=== PATIENT | male | born 1955 | race African-American/Black ===

== ENCOUNTER 2018-12-28 15:43 | Day surgery (SDC) | payer MEDICARE, MEDICAID ==
[~2018-12-28] VITALS: Ht 182.9 cm; Wt 85.8 kg
[2018-12-28] MEDS ORDERED: fentaNYL INJECTION 100 MCG/2 ML AMP ONE ×2 (16:00→16:25)
[2018-12-28] MEDS ORDERED: ASPIRIN 81 MG CHEW (CHILDREN'S ASA) PO ONE (16:00)
[2018-12-28 16:10] LABS: HEMATOCRIT 46 % (40-54); MEAN CORPUSCULAR HEMOGLOBIN 29 PG (25-34); MEAN CORPUSCULAR HGB CONC 33 G/DL (32-36); MEAN CORPUSCULAR VOLUME 90 FL (80-99); MEAN PLATELET VOLUME 10.4 FL (7.4-10.4); PLATELET COUNT 228 10^3/uL (130-400); WHITE BLOOD COUNT 9.2 10^3/uL (4.3-11.0)
[2018-12-28 16:11] LABS: BASOPHILS # (AUTO) 0.1 10^3/uL (0.0-0.1); BASOPHILS % (AUTO) 1 % (0-10); EOSINOPHILS # (AUTO) 0.1 10^3/uL (0.0-0.3); EOSINOPHILS % (AUTO) 1 % (0-10); LYMPHOCYTES # (AUTO) 1.6 X 10^3 (1.0-4.0); LYMPHOCYTES % (AUTO) 18 % (12-44); MONOCYTES # (AUTO) 0.5 X 10^3 (0.0-1.0); MONOCYTES % (AUTO) 6 % (0-12); NEUTROPHILS # (AUTO) 6.9 X 10^3 (1.8-7.8); NEUTROPHILS % (AUTO) 75 % (42-75); RED CELL DISTRIBUTION WIDTH 13.5 % (10.0-14.5)
--- NOTE | 2018-12-28 16:14 | Diagnostic Imaging Report ---
INDICATION: Chest pain. COMPARISON: None. DISCUSSION: Single portable upright view of the chest was obtained. Normal heart size. No focal consolidation, pleural fluid, or pneumothorax. No osseous abnormality. IMPRESSION: 1. Negative portable chest. Dictated by: Dictated on workstation # [id number]
[2018-12-28] MEDS ORDERED: fentaNYL INJECTION 100 MCG/2 ML AMP IVP ONE (16:15)
[2018-12-28] MEDS ORDERED: NITROGLYCERIN 2% OINT 1 GM UNIT DOSE PACKET TOP ONE (16:15)
[2018-12-28] MEDS ORDERED: MIDAZOLAM 5 MG/5 ML (VERSED) VIAL ONE (16:24)
[2018-12-28] MEDS ORDERED: HEParin 1000 UNIT/ML (10ML VIAL) FOR BOLUS ONE (16:25)
[2018-12-28] MEDS ORDERED: EPTIFIBATIDE BOLUS 0 ML IV ONE (16:25)
[2018-12-28 16:27] LABS: BUN/CREATININE RATIO 6; CARBON DIOXIDE 29 MMOL/L (21-32); CHLORIDE 105 MMOL/L (98-107); CREATININE SERUM 1.41 MG/DL (0.60-1.30); GFR ESTIMATED > 60; POTASSIUM 4.1 MMOL/L (3.6-5.0); SODIUM 146 MMOL/L (135-145)
--- NOTE | 2018-12-28 16:27 | ED Chest Pain ---
General Stated Complaint: CHEST PAIN Source: patient, family Exam Limitations: no limitations History of Present Illness Date Seen by Provider: Dec 28, 2018 Time Seen by Provider: 15:50 Initial Comments This 63-year-old gentleman presents to the emergency room with acute onset of chest pain after push mowing a lawn at around 14:45. Pain is in the lower chest and epigastric region. He is not having any other symptoms at this time. He has markedly hypertensive. He has a history of hypertension and has quit his blood pressure medication because it made him feel dizzy. He denies any history of coronary artery disease. He is not on any medications at present. He has no local primary care provider. He rated his pain a 10 upon arrival to the ER and a 5/10 at the time of my exam. Allergies and Home Medications Allergies Coded Allergies: No Known Drug Allergies (Unverified , 12/28/18) Home Medications Aspirin 81 Mg Tablet.dr, 81 MG PO DAILY Prescribed by: RAFAT MALLORY on 12/29/182048 Atorvastatin Calcium 80 Mg Tablet, 80 MG PO HS Prescribed by: RAFAT MALLORY on 12/29/182048 Clopidogrel Bisulfate 75 Mg Tablet, 75 MG PO DAILY Prescribed by: RAFAT MALLORY on 12/29/182048 Metoprolol Tartrate 25 Mg Tablet, 25 MG PO BID Prescribed by: RAFAT MALLORY on 12/29/182048 Pantoprazole Sodium 40 Mg Tablet.dr, 40 MG PO DAILY Prescribed by: RAFAT MALLORY on 12/29/182048 Patient Home Medication List Home Medication List Reviewed: Yes Review of Systems Review of Systems Constitutional: no symptoms reported EENTM: No Symptoms Reported Respiratory: No Symptoms Reported Cardiovascular: See HPI Gastrointestinal: No Symptoms Reported Genitourinary: No Symptoms Reported Musculoskeletal: no symptoms reported Skin: no symptoms reported Psychiatric/Neurological: No Symptoms Reported Endocrine: No Symptoms Reported Hematologic/Lymphatic: No Symptoms Reported Past Rfkcmus-Zlblwb-Ebyyao Hx Past Med/Social Hx: Reviewed and Corrections made Patient Social History Recreational Drug Use: No Smoking Status: Former Smoker Past Medical History Surgeries: No Respiratory: No Cardiac: Yes Hypertension Neurological: Yes (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 oz. 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 Skin: Normal Color, Warm/Dry Progress/Results/Core Measures Results/Orders Lab Results Laboratory Tests Test 12/28/18 15:57 Range/Units White Blood Count 9.2 4.3-11.0 10^3/uL Red Blood Count 5.11 4.35-5.85 10^6/uL Hemoglobin 15.0 13.3-17.7 G/DL Hematocrit 46 40-54 % Mean Corpuscular Volume 90 80-99 FL Mean Corpuscular Hemoglobin 29 25-34 PG Mean Corpuscular Hemoglobin Concent 33 32-36 G/DL Red Cell Distribution Width 13.5 10.0-14.5 % Platelet Count 228 130-400 10^3/uL Mean Platelet Volume 10.4 7.4-10.4 FL Neutrophils (%) (Auto) 75 42-75 % Lymphocytes (%) (Auto) 18 12-44 % Monocytes (%) (Auto) 6 0-12 % Eosinophils (%) (Auto) 1 0-10 % Basophils (%) (Auto) 1 0-10 % Neutrophils # (Auto) 6.9 1.8-7.8 X 10^3 Lymphocytes # (Auto) 1.6 1.0-4.0 X 10^3 Monocytes # (Auto) 0.5 0.0-1.0 X 10^3 Eosinophils # (Auto) 0.1 0.0-0.3 10^3/uL Basophils # (Auto) 0.1 0.0-0.1 10^3/uL Prothrombin Time 13.1 12.2-14.7 SEC INR Comment 1.0 0.8-1.4 Activated Partial Thromboplast Time 31 24-35 SEC Sodium Level 146 H 135-145 MMOL/L Potassium Level 4.1 3.6-5.0 MMOL/L Chloride Level 105 98-107 MMOL/L Carbon Dioxide Level 29 21-32 MMOL/L Anion Gap 12 5-14 MMOL/L Blood Urea Nitrogen 8 7-18 MG/DL Creatinine 1.41 H 0.60-1.30 MG/DL Estimat Glomerular Filtration Rate > 60 BUN/Creatinine Ratio 6 Glucose Level 130 H 70-105 MG/DL Calcium Level 10.3 H 8.5-10.1 MG/DL Corrected Calcium 8.5-10.1 MG/DL Magnesium Level 2.2 1.6-2.4 MG/DL Total Bilirubin 0.4 0.1-1.0 MG/DL Aspartate Amino Transf (AST/SGOT) 21 5-34 U/L Alanine Aminotransferase (ALT/SGPT) 12 0-55 U/L Alkaline Phosphatase 107 40-136 U/L Myoglobin 45.7 10.0-92.0 NG/ML Troponin I < 0.30 <0.30 NG/ML Total Protein 8.4 H 6.4-8.2 GM/DL Albumin 4.7 H 3.2-4.5 GM/DL My Orders Orders - KELIN COLVIN MD Cbc With Automated Diff (12/28/18 15:50) Magnesium (12/28/18 15:50) Chest 1 View Ap/Pa Only (12/28/18 15:50) Ekg Tracing (12/28/18 15:50) Comprehensive Metabolic Panel (12/28/18 15:50) Myoglobin Serum (12/28/18 15:50) Protime With Inr (12/28/18 15:50) Partial Thromboplastin Time (12/28/18 15:50) O2 (12/28/18 15:50) Monitor-Rhythm Ecg Trace Only (12/28/18 15:50) Ed Iv/Invasive Line Start (12/28/18 15:50) Troponin I (12/28/18 15:50) Aspirin Chewable Tablet (Baby Aspirin Ch (12/28/18 16:00) Fentanyl Injection (Sublimaze Injection (12/28/18 16:00) Nitroglycerin Ointment (Nitrobid Ointme (12/28/18 16:15) Heparin Injection (Heparin Injection) (12/28/18 16:15) Fentanyl Injection (Sublimaze Injection (12/28/18 16:15) Midazolam Injection (Versed Injection) (12/28/18 16:24) Fentanyl Injection (Sublimaze Injection (12/28/18 16:25) Heparin (Bolus Per Protocol) (Heparin (B (12/28/18 16:25) Eptifibatide Bolus (Integrilin Bolus) (12/28/18 16:25) Medications Given in ED Vital Signs/I&O 12/28/18 12/28/18 12/28/18 12/28/18 15:43 15:43 16:00 16:17 Temp 98.2 98.2 Pulse 60 67 Resp 20 20 B/P (MAP) 175/103 (127) 185/103 (130) Pulse Ox 96 96 O2 Delivery Room Air Room Air Nasal Cannula Nasal Cannula O2 Flow Rate 2.00 2.00 FiO2 95 Progress Progress Note : Progress Note EKG was promptly obtained after patient arrival. That demonstrated developing ST elevation. Dr. Mallory reviewed EKG at 15:53 and agreed the EKG represented ischemia. He recommended immediate transfer and angiography. Patient was treated with aspirin, heparin 5000 units IV, fentanyl 50 g IV, and Nitropaste. Pain was improving. He was transferred emergently to [place] for cardiac interventions by [facility]. Initial ECG Impression Date: Dec 28, 2018 Initial ECG Impression Time: 15:50 Initial ECG Rate: 59 Initial ECG Rhythm: Normal Sinus Comment Normal sinus rhythm with ST elevation in V1 through V3. No abnormal intervals or axis deviation. Diagnostic Imaging Diagonstic Imaging: Xray Plain Films/CT/US/NM/MRI: chest Comments Chest x-ray viewed by me and report reviewed. See report below: NAME: DIMA MTZ MED REC#: [id number] PT STATUS: REG ER : 1955 PHYSICIAN: KELIN COLVIN MD ADMIT DATE: 12/28/18/ER FS Draft Date of Exam:12/28/18 CHEST 1 VIEW AP/PA ONLY INDICATION: Chest pain. COMPARISON: None. DISCUSSION: Single portable upright view of the chest was obtained. Normal heart size. No focal consolidation, pleural fluid, or pneumothorax. No osseous abnormality. IMPRESSION: 1. Negative portable chest. Dictated on workstation # [id number] Dict: 12/28/18 1608 Trans: 12/28/18 1613 [facility] [id number] Interpreted by: GERARDO RODRIGUEZ MD Departure Communication (Admissions) Time/Spoke to Admitting Phy: 15:53 Dr. Mallory Impression Primary Impression: STEMI (ST elevation myocardial infarction) Qualified Codes: I21.3 - ST elevation (STEMI) myocardial infarction of unspecified site Additional Impression: Accelerated hypertension Disposition: 02 XFER SHT-TRM HOSP Condition: Stable Admissions Decision to Admit Reason: Admit from ER (Trauma) Decision to Admit/Date: Dec 28, 2018 Time/Decision to Admit Time: 15:53 Transfer Time Spoke to Accepting Phy: 15:[address] Mallory requested transfer emergently to [facility] for cardiac catheterization. Transfer Time: 16:17 Transfer Facility: [facility] Method of Transfer: EMS ([facility]) Departure-Patient Inst. Scripts Pantoprazole Sodium (Pantoprazole Sodium) 40 Mg Tablet. 40 MG PO DAILY, #30 TAB 2 Refills Prov: RAFAT MALLORY MD 12/29/18 Aspirin (Aspirin EC) 81 Mg Tablet. 81 MG PO DAILY, #100 TAB 2 Refills Prov: RAFAT MALLORY MD 12/29/18 Metoprolol Tartrate (Metoprolol Tartrate) 25 Mg Tablet 25 MG PO BID, #60 TAB 2 Refills Prov: RAFAT MALLORY MD 12/29/18 Atorvastatin Calcium (Atorvastatin Calcium) 80 Mg Tablet 80 MG PO HS, #30 TAB 2 Refills Prov: RAFAT MALLORY MD 12/29/18 Clopidogrel Bisulfate (Clopidogrel) 75 Mg Tablet 75 MG PO DAILY, #30 TAB 2 Refills Prov: RAFAT MALLORY MD 12/29/18 KELIN COLVIN MD Dec 28, 2018 16:27
[2018-12-28 16:28] LABS: ALANINE AMINOTRANSFERASE 12 U/L (0-55); ALBUMIN 4.7 GM/DL (3.2-4.5); ALKALINE PHOSPHATASE 107 U/L (40-136); BILIRUBIN,TOTAL 0.4 MG/DL (0.1-1.0); CALCIUM 10.3 MG/DL (8.5-10.1); GLUCOSE 130 MG/DL (70-105); MAGNESIUM 2.2 MG/DL (1.6-2.4); TOTAL PROTEIN 8.4 GM/DL (6.4-8.2)
--- NOTE | 2018-12-28 16:41 | Cardiology History & Physical ---
HPI-Cardiology Cardiology Consultation Date of Consultation 12/28/18 Date of Admission Time Seen by Provider: 16:40 Indication: Chest pain HPI 63 years old gentleman with no known past history, started to have chest pain while mowing his lawn, described as 10 over 10 in intensity, went to [place] emergency room and noted to have continued ST elevation in the anterior leads, p ain is better with nitroglycerin, started on aspirin, given heparin. I was contacted and accepted the transfer to our facility for emergency cardiac catheterization. 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, treated at [facility]) Reproductive System Hx Reproductive Disorders: No Gastrointestinal No Musculoskeletal No Endocrine No HEENT No Cancer No Psychosocial No Social History Patient Social History Marrital Status: Smoking: Former smoker Recent Foreign Travel: No Contact w/other who traveled: No Recent Infectious Disease Expo: No Family Hx Other noncontributory ROS-Cardiology Review of Systems General: No Chills, No Night Sweats, No Fatigue, No Malaise, No Appetite HEENT: No Head Aches, No Visual Changes, No Eye Pain, No Ear Pain, No Dysphasia, No Sinus Congestion, No Post Nasal Drip, No Sore Throat Pulmonary: Dyspnea; No Cough, No Pleuritic Chest Pain Cardiovascular: Chest Pain; No: Palpitations, Orthopnea, Paroxysmal Noc. Dyspnea, Edema, Lt Headedness Gastrointestinal: No: Nausea, Vomiting, Abdominal Pain, Diarrhea, Constipation, Melena, Hematochezia Genitourinary: No Dysuria, No Frequency, No Incontinence, No Hematuria, No Retention Musculoskeletal: No: neck pain, shoulder pain, arm pain, back pain, hand pain, leg pain, foot pain Neurological: No: Weakness, Numbness, Incoordination, Change in speech, Confusion, Seizures Home Medications & Allergies Allergies: Coded Allergies: No Known Drug Allergies (Unverified , 12/28/18) Home Medication List Reviewed: Yes Does not take any meds at home Exam-Cardiology Vital Signs Vital Signs Date Time Temp Pulse Resp B/P (MAP) Pulse Ox O2 Delivery O2 Flow Rate FiO2 12/28/18 16:17 98.2 67 20 185/103 (130) 96 Nasal Cannula 2.00 12/28/18 16:00 95 Exam General Appearance: Alert, Oriented X3, Cooperative, No Acute Distress HEENT: Atraumatic, PERRLA Respiratory: Clear to Auscultation, Normal Air Movement Cardiovascular: Regular Rate, Normal S1, Normal S2, Other (SM, S3) Abdominal: Normal Bowel Sounds, Soft, No Tenderness, No Hepatosplenomegaly, No Masses Extremities: No Clubbing, No Cyanosis, No Edema, Normal Pulses, No Tenderness/Swelling Skin: No Rashes, No Breakdown, No Significant Lesion Neuro: Normal Gait, Normal Speech, Strength at 5/5 X4 Ext, Normal Tone, Sensation Intact Psych/Mental Status: Mental Status NL, Mood NL Results Labs Labs Laboratory Tests 12/28/18 15:57: White Blood Count 9.2, Red Blood Count 5.11, Hemoglobin 15.0, Hematocrit 46, Mean Corpuscular Volume 90, Mean Corpuscular Hemoglobin 29, Mean Corpuscular Hemoglobin Concent 33, Red Cell Distribution Width 13.5, Platelet Count 228, Mean Platelet Volume 10.4, Neutrophils (%) (Auto) 75, Lymphocytes (%) (Auto) 18, Monocytes (%) (Auto) 6, Eosinophils (%) (Auto) 1, Basophils (%) (Auto) 1, Neutrophils # (Auto) 6.9, Lymphocytes # (Auto) 1.6, Monocytes # (Auto) 0.5, Eosinophils # (Auto) 0.1, Basophils # (Auto) 0.1, Prothrombin Time 13.1, INR Comment 1.0, Activated Partial Thromboplast Time 31, Sodium Level 146H, Potassium Level 4.1, Chloride Level 105, Carbon Dioxide Level 29, Anion Gap 12, Blood Urea Nitrogen 8, Creatinine 1.41H, Estimat Glomerular Filtration Rate > 60, BUN/Creatinine Ratio 6, Glucose Level 130H, Calcium Level 10.3H, Corrected Calcium , Magnesium Level 2.2, Total Bilirubin 0.4, Aspartate Amino Transf (AST/SGOT) 21, Alanine Aminotransferase (ALT/SGPT) 12, Alkaline Phosphatase 107, Myoglobin 45.7, Troponin I < 0.30, Total Protein 8.4H, Albumin 4.7H A/P-Cardiology Admission Diagnosis Unstable angina Coronary artery disease Hypertensive emergency Hyperlipidemia Admission Status: Observation Assessment/Plan Unstable angina, continue ST elevation in the anterior lead with Q-wave, could be secondary to hypertensive heart disease. Chronic enzymes were negative, currently chest pain-free, cardiac catheterization was carried out showing multivessel coronary artery disease Coronary artery disease, cardiac catheterization showed moderate severe stenosis in the mid and distal LAD, moderate stenosis in the left main and ostial LAD, first obtuse marginal and distal right coronary artery, we'll continue maximizing medical therapy at this point. Malignant hypertension, difficult to control, started on Lopressor, lisinopril, nitroglycerin drip and will adjust medication as needed. Hyperlipidemia, started on statin. 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
[2018-12-28 16:43] LABS: PROTHROMBIN TIME PATIENT 13.1 SEC (12.2-14.7)
[2018-12-28] MEDS ORDERED: HEParin (CATH LAB) 2,000 UNIT/1,000 ML BAG IV ONE (16:56)
[2018-12-28] MEDS ORDERED: NITRO DRIP 25000 MCG/D5W 250 ML BTL IV ONE (16:56)
[2018-12-28] MEDS ORDERED: LIDOCAINE 1% INJ 20 ML 20 ML VIAL INJ ONE (16:56)
[2018-12-28] MEDS ORDERED: NS 1000 ML IV BAG IV ONE (16:56)
[2018-12-28] MEDS ORDERED: meTOprolol 5 MG/5 ML (LOPRESSOR) VIAL ONE (16:59)
[2018-12-28] MEDS ORDERED: NITRO DRIP 25000 MCG/D5W 250 ML IV ONE (17:05)
--- NOTE | 2018-12-28 17:16 | Cardiac Procedure Note-CS/ASA ---
Pre-Procedure Note Pre-Op Procedure Note H&P Reviewed The H&P was reviewed, patient examined and no changes noted. Date H&P Reviewed: Dec 28, 2018 Time H&P Reviewed: 17:16 Conscious Sedation Pre-Proced Time 17:16 ASA Score 3 For ASA 3 and 4: Consider anesthesia and medical clearance. Also, for patients with a history of failed moderate sedation consider anesthesia. Airway Lungs Heart ASA score ASA 1: a normal healthy patient ASA 2: a patient with a mild systemic disease (mid diabetes, controlled hypertension, obesity x ASA 3: a patient with a severe systemic disease that limits activity (angina, COPD, prior Myocardial infarction) ASA 4: a patient with an incapacitating disease that is a constant threat to life (CHF, renal failure) ASA 5: a moribund patient not expected to survive 24 hrs. (ruptured aneurysm) ASA 6: a declared brain- patient whose organs are being harvested. For emergent operations, add the letter E after the classification Mallampati Classification Grade 3 Sedation Plan Analgesia, Amnesia, Plan communicated to team members, Discussed options with patient/fam, Discussed risks with patient/fam The patient is an appropriate candidate to undergo the planned procedure, sedation, and anesthesia. The patient immediately re-assessed prior to indication. RAFAT GARCIA MD Dec 28, 2018 17:16
--- NOTE | 2018-12-28 17:27 | Cardiac Cath Report ---
Cardiac Cath Report Physician (s)/Apparel Machinery Instructor (s) Physician RAFAT GARCIA MD Pre-Procedure Diagnosis Pre-Procedure Diagnosis: Unstable angina Post-Procedure Note Procedure Start Date: Dec 28, 2018 Name of Procedure: Left heart catheterization Left ventriculogram Aortic arch angiogram Findings/Procedure Note PROCEDURE NOTE: 63 years old gentleman with history of malignant hypertension, came in to [place] emergency room with acute chest pain, transferred to our hospital for evaluation with cardiac catheterization, having continued ST elevation in the anterior leads. After explaining the procedure to the patient, all pros and cons were explained, all questions were answered. The patient signed the consent and then he was placed on the cardiac catheterization laboratory. Groin was prepped SL fashion local anesthesia was used. Sheath placed in the right femoral artery. Nicci right and left catheter were used to access the coronary system. Pigtail was used to access the left ventricular cavity. Left ventriculogram was done Aortic arch angiogram was done At the end of the procedure the sheath was removed. Closure device was used FINDINGS: Hemodynamics LV 191/20, end-diastolic pressure of 20 Aorta 203/108 mean was 150 ANATOMY: Left Main has 40-50 percent stenosis distally Left Anterior Descending has 50 percent ostial stenosis, 80 percent mid to distal stenosis the artery is fairly small followed by severe stenosis at the apex very small artery Left Circumflex is moderate in size with mild to moderate disease, first obtuse marginal branch has 50 percent stenosis Right Coronory Artery is dominant artery with moderate disease diffusely, 50 percent stenosis at the distal portion LV Gram was done showing normal left ventricular size and systolic function estimated ejection fraction 60 percent, left ventricular hypertrophy Aorta evaluation done with aortic arch angiogram showing no dissection or aneurysm, hypertensive changes, origin of the left subclavian, left carotid and innominate artery showed atherosclerotic disease no obstructive disease CONCLUSION: 1. Multivessel coronary artery disease including 40-50 percent distal left main involving the ostium of the LAD, the mid to distal LAD has 80 percent stenosis followed by severe stenosis at the apex, the artery is less than 2 mm in diameter 2. Mild to moderate disease at the mid and distal right coronary artery and proximal first obtuse marginal branch 3. Hypertensive heart disease with normal contractility, left ventricular hypertrophy with normal ejection fraction 60 percent 4. Hypertensive changes in the aortic arch no dissection or aneurysm DISCUSSION AND RECOMMENDATION: I will maximize medical therapy at this time and monitor the patient closely. Start on aspirin, beta blockers, NAMRATA inhibitor and statin and monitor tolerance and response. Regarding the mid and distal LAD, the artery is fairly small, unless patient is severely symptomatic I will consider medical therapy. Regardi ng the left main was monitoring is recommended, he might require CABG in the future Anesthesia Type: Conscious Sedation Estimated blood loss (mL): 15 ml Contrast Amount: 66 ml Total Radiation Dose: 350 mGy Post-Procedure Diagnosis Post-operative diagnosis: Unstable angina Coronary artery disease Malignant hypertension Hyperlipidemia RAFAT GARCIA MD Dec 28, 2018 17:27
[2018-12-28] MEDS ORDERED: PATIENT MAY USE OWN MEDS, ALL PO SCH (17:30)
[2018-12-28] MEDS: PANTOPRAZOLE 40 MG (PROTONIX) TAB PO SCH (18:54)
[2018-12-28] MEDS: NITRO DRIP 25000 MCG/D5W 250 ML IV SCH (18:55)
[2018-12-28] MEDS: lisINopril 20 MG (PRINIVIL) TABLET PO SCH (18:55)
[2018-12-28] MEDS: NS IV 1000 ML 1,000 ML IV SCH (18:56)
[2018-12-28 19:00] VITALS: BP 152/96
[2018-12-28] MEDS ORDERED: oxyCODONE/APAP 5/325MG (PERCOCET 5) TABLET PO PRN (19:45)
[2018-12-28 20:00] VITALS: BP 149/99
[2018-12-28] MEDS: meTOprolol TARTRATE 25 MG (LOPRESSOR) TABLET PO SCH (20:36)
[2018-12-28 21:00] VITALS: BP 130/99
[2018-12-28] MEDS ORDERED: ATORVASTATIN 80 MG (LIPITOR) TABLET PO SCH (21:00)
[2018-12-28] MEDS ORDERED: TEMAZEPAM 15 MG (RESTORIL) CAP PO PRN (21:00)
[2018-12-28 22:00] VITALS: BP 101/87
[2018-12-28 23:00] VITALS: BP 146/94
[2018-12-29] VITALS (11 sets, daily range): BP systolic 124–192; BP diastolic 73–112
[2018-12-29 04:00] LABS: HEMOGLOBIN 13.3 G/DL (13.3-17.7); MEAN PLATELET VOLUME 10.7 FL (7.4-10.4); RED CELL DISTRIBUTION WIDTH 13.9 % (10.0-14.5)
[2018-12-29 04:20] LABS: ALANINE AMINOTRANSFERASE 11 U/L (0-55); ALBUMIN 3.7 GM/DL (3.2-4.5); ALKALINE PHOSPHATASE 75 U/L (40-136); BILIRUBIN,TOTAL 0.4 MG/DL (0.1-1.0); BUN/CREATININE RATIO 7; CALCIUM 9.6 MG/DL (8.5-10.1); CARBON DIOXIDE 26 MMOL/L (21-32); CHLORIDE 105 MMOL/L (98-107); CHOLESTEROL 172 MG/DL (< 200); CREATININE SERUM 1.15 MG/DL (0.60-1.30); GFR ESTIMATED > 60; GLUCOSE 147 MG/DL (70-105); HDL CHOLESTEROL 42 MG/DL (40-60); POTASSIUM 3.9 MMOL/L (3.6-5.0); SODIUM 142 MMOL/L (135-145); TOTAL PROTEIN 6.7 GM/DL (6.4-8.2); TRIGLYCERIDES 87 MG/DL (<150); VLDL CHOLESTEROL 17 MG/DL (5-40)
[2018-12-29] MEDS: meTOprolol TARTRATE 25 MG (LOPRESSOR) TABLET PO SCH (08:01)
[2018-12-29] MEDS: lisINopril 20 MG (PRINIVIL) TABLET PO SCH (08:01)
[2018-12-29] MEDS: PANTOPRAZOLE 40 MG (PROTONIX) TAB PO SCH (08:02)
--- NOTE | 2018-12-29 08:34 | Cardiology Progress Note ---
Subjective Date Seen by Provider: Dec 29, 2018 Time Seen by Provider: 08:32 Subjective/Events-last exam Patient is laying down in bed, feeling better, denied any chest pain today. Groin is healing well. Review of Systems General: No Chills, No Night Sweats, No Fatigue, No Malaise, No Appetite, No Other HEENT: No Head Aches, No Visual Changes, No Eye Pain, No Ear Pain, No Dysphasia, No Sinus Congestion, No Post Nasal Drip, No Sore Throat, No Other Pulmonary: No Dyspnea, No Cough, No Pleuritic Chest Pain, No Other Cardiovascular: No: Chest Pain, Palpitations, Orthopnea, Paroxysmal Noc. Dyspnea, Edema, Lt Headedness, Other Objective-Cardiology Exam Last Set of Vital Signs Vital Signs 12/28/18 12/29/18 12/29/18 12/29/18 16:00 04:42 04:43 06:09 Temp 98.2 Pulse 49 Resp 15 B/P (MAP) 131/77 (95) Pulse Ox 13 O2 Delivery Room Air O2 Flow Rate 2.00 FiO2 95 Capillary Refill : Less Than 3 Seconds I&O Intake and Output 12/29/18 00:00 Intake Total 1360 ml Output Total 200 ml Balance 1160 ml Intake Oral 360 ml IV Total 1000 ml Output Urine Total 200 ml Daily Weight Change No General: Alert, Oriented X3, Cooperative, No Acute Distress HEENT: Atraumatic, PERRLA Lungs: Clear to Auscultation, Normal Air Movement Heart: Regular Rate, Normal S1, Normal S2, Other (SM, S3) Abdomen: Normal Bowel Sounds, Soft, No Tenderness, No Hepatosplenomegaly, No Masses Extremities: No Clubbing, No Cyanosis, No Edema, Normal Pulses, No Tenderness/Swelling Skin: No Rashes, No Breakdown, No Significant Lesion Neuro: Normal Gait, Normal Speech, Strength at 5/5 X4 Ext, Normal Tone, Sensation Intact Psych/Mental Status: Mental Status NL, Mood NL Results Lab Laboratory Tests 12/28/18 15:57 12/29/18 03:48 A/P-Cardiology Admission Diagnosis Unstable angina Coronary artery disease Hypertensive emergency Hyperlipidemia Assessment/Plan Unstable angina, non-ST elevation myocardial infarction, minimal concave ST elevation with Q-wave in the inferior lead secondary to left ventricular hypertrophy. Patient had cardiac catheterization showing extensive small vessel disease. Treated medically Coronary artery disease, cardiac catheterization showed moderate severe stenosis in the mid and distal LAD, subtotal occlusion at the far distal LAD at the apex level hairline artery, moderate stenosis in the left main and ostial LAD, first obtuse marginal and distal right coronary artery, I will wean him off nitroglycerin drip at [facility] and his current medication Malignant hypertension, better controlled today, continue to maximize medical therapy Hyperlipidemia, started on statin. History of frontal lobe injury questionable secondary to hypertensive encep halopathy Early dementia Clinical Quality Measures AMI/AHF: ASA po Prior to arrival: No DVT/VTE Risk/Contraindication: Risk Factor Score Per Nursin RFS Level Per Nursing on Admit: 4+=Very High RAFAT GARCIA MD Dec 29, 2018 08:34
[2018-12-29] MEDS ORDERED: CLOPIDOGREL 300 MG (PLAVIX) TABLET PO ONE (08:45)
[2018-12-29] MEDS ORDERED: ASPIRIN E.C. 81 MG (ECOTRIN) TAB PO SCH (09:00)
[2018-12-29] MEDS: NS IV 1000 ML 1,000 ML IV SCH ×2 (09:18→14:21)
--- NOTE | 2018-12-29 09:18 | Consultation - Hospitalist ---
HPI History of Present Illness: HPI/Chief Complaint Pt is a 63yoAAM who presented to the ER with CC of chest pain. He underwent cardiac cath yesterday which revealed diffuse small vessel disease and was not amenable to stenting. I am consulted for medical management. He has hyperglycemia while here but denies a history of DM. He is also unable to tell me a detailed history and states his daughter knows his medical history. His only question/complaint today is that he would like to discharge home. Source: patient Date Seen 12/29/18 Attending Physician Nathalia Mallory MD PCP Referring Physician Dr Mallory Date of Admission Home Medications & Allergies Home Medications Reviewed patient Home Medication Reconciliation performed by pharmacy medication reconciliations mechanical design technician and/or nursing. Patients Allergies have been reviewed. Allergies Allergies Coded Allergies No Known Drug Allergies (Unverified12/28/18) Past Xwylhsd-Alfkxu-Auxdxp Hx Past Med/Social Hx: Reviewed Nursing Past Med/Soc Hx, Reviewed and Corrections made Patient Social History Marrital Status: Alcohol Use: Denies Use Recreational Drug Use: No Smoking Status: Unknown if Ever Smoked Type Used: Smokeless Tobacco 2nd Hand Smoke Exposure: No Recent Foreign Travel: No Contact w/other who traveled: No Recent Hopitalizations: No Recent Infectious Disease Expo: No Seasonal Allergies Seasonal Allergies: No Past Medical History Surgeries: Coronary Stent Cardiac: Hypertension Reproductive: No History of Blood Disorders: No Family History Reviewed Nursing Family Hx Cervical cancer Hypertension G8 BROTHER G8 BROTHER G8 BROTHER Stroke in brother Review of Systems Constitutional: no symptoms reported EENTM: no symptoms reported Respiratory: no symptoms reported Cardiovascular: chest pain Gastrointestinal: no symptoms reported Genitourinary: no symptoms reported Musculoskeletal: no symptoms reported Skin: no symptoms reported Psychiatric/Neurological: No Symptoms Reported Physical Exam Physical Exam Vital Signs Vital Signs - First Documented 12/28/18 12/28/18 15:43 16:00 Temp 98.2 Pulse 60 Resp 20 B/P (MAP) 175/103 (127) Pulse Ox 96 O2 Delivery Room Air O2 Flow Rate 2.00 FiO2 95 Capillary Refill : Less Than 3 Seconds Height, Weight, BMI Height: 6'0.00" Weight: 189lbs. 4.0oz. 85.615256tz; 25.8 BMI Method:Estimated General Appearance: No Apparent Distress, WD/WN HEENT: PERRL/EOMI, Moist Mucous Membranes; No Scleral Icterus (L), No Scleral Icterus (R) Neck: Normal Inspection; No JVD, No Thyromegaly Respiratory: Lungs Clear, No Accessory Muscle Use, No Respiratory Distress Cardiovascular: Regular Rate, Rhythm, No Edema, No Murmur Gastrointestinal: Normal Bowel Sounds, Non Tender, Soft Extremity: Normal Inspection, Non Tender, No Calf Tenderness, No Pedal Edema Neurologic/Psychiatric: Alert, Oriented x3, Normal Mood/Affect, district leader II-XII Norm as Tested Skin: Normal Color, Warm/Dry Results Results/Procedures Labs Laboratory Tests 12/28/18 15:57 12/29/18 03:48 Patient resulted labs reviewed. Imaging: Reviewed Imaging Report Assessment/Plan Assessment and Plan Assess & Plan/Chief Complaint Chest Pain Medical management of CAD Management per cardiology HTN now off nitro gtt and improving Continue with Lisinopril, Metoprolol Hyperglycemia Will get a1c No known history of DM Dementia Pleasantly confused Reorient as needed Diagnosis/Problems Diagnosis/Problems (1) STEMI (ST elevation myocardial infarction) Status: Acute Qualifiers: Involved coronary artery: unspecified coronary artery Qualified Codes: I21.3 - ST elevation (STEMI) myocardial infarction of unspecified site (2) Hyperglycemia Status: Acute (3) Dementia Status: Acute Qualifiers: Dementia type: other frontotemporal dementia Dementia behavioral distu rbance: without behavioral disturbance Qualified Codes: G31.09 - Other frontotemporal dementia; F02.80 - Dementia in other diseases classified elsewhere without behavioral disturbance (4) Unstable angina Status: Acute (5) Accelerated hypertension Status: Acute Clinical Quality Measures AMI/AHF: ASA po Prior to arrival: No DVT/VTE Risk/Contraindication: Risk Factor Score Per Nursin RFS Level Per Nursing on Admit: 4+=Very High ELENA PÉREZ MD Dec 29, 2018 09:18
[2018-12-29] MEDS: NITRO DRIP 25000 MCG/D5W 250 ML IV SCH (17:46)
[2018-12-29] MEDS ORDERED: HALOPERIDOL 5 MG/ML (HALDOL) AMP ONE (20:27)
[2018-12-29] MEDS ORDERED: HALOPERIDOL 5 MG/ML (HALDOL) AMP IM PRN (20:45)
[2018-12-29] MEDS ORDERED: ASPI-983 PO (20:49)
[2018-12-29] MEDS ORDERED: PANT40TA3 PO (20:49)
[2018-12-29] MEDS ORDERED: CLOP75TA28 PO (20:49)
[2018-12-29] MEDS ORDERED: ATOR80TA76 PO (20:49)
[2018-12-29] MEDS ORDERED: METO-333 PO (20:49)
--- NOTE | 2018-12-29 20:50 | Discharge Inst-Post CATH ---
Discharge Inst-CATH/EP Problems Reviewed?: Yes Post Cardiac Cath/EP D/C Inst Follow Up/Plan Appointment with Dr Carlos in 2-4 weeks <b>CARDIAC CATH/EP PROCEDURE DISCHARGE INSTRUCTIONS</b> ACTIVITY * Go Home directly and rest. * Limit activity of the leg (or wrist if it was used) for 7 days including aerobics, swimming, jogging, bicycling, etc. * Restrict stair-climbing for 7 days if possible, if not, climb up with your non-cath leg, then bring together on the same step. * Avoid lifting, pushing, pulling or excessive movement of the affected extremity for 7 days. * Customary sexual activity may be resumed after 2 days-use caution not to use a position that strains or causes pain to the affected extremity. * No driving for 24 hours. * NO SMOKING. * Avoid straining for bowel movements for 7 days. * Gentle walking on level ground is allowed. * Returning to work will depend on the type of procedure and the results. Your doctor will discuss this with you. CALL YOUR DOCTOR FOR ANY OF THE FOLLOWING: *If bleeding from the puncture site occurs- Apply gentle pressure to site with clean cloth and call your doctor or EMS. * If a knot or lump forms under the skin, increases in size, or causes pain. * If bruising appears to be worsening or moving further down your leg instead of disappearing. * Temperature above 101 F. CARE OF YOUR GROIN INCISION; * Bruising or purple discoloration of the skin near the puncture site is common. * You may shower only, no bathtub bathing for 5 days. Be careful to avoid slipping as your leg may feel stiff. * If a closure device was used on your femoral artery, please see the attached guide regarding care of the device and your leg. * Leave dressing on FOR 24 hours. CARE OF YOUR WRIST INCISION; * Bruising or purple discoloration of the skin near the puncture site is common. * You may shower. * DO NOT submerge wrist. * Leave dressing on FOR 24 hours. RAFAT GARCIA MD Dec 29, 2018 20:50
--- NOTE | 2018-12-29 20:54 | Clinic Account Progress/Dx ---
Clinic Account Progress/Dx DIAGNOSIS: Date Seen by Provider: Dec 29, 2018 Time Seen by Provider: 20:54 Unstable angina Coronary artery disease Hypertensive emergency Hyperlipidemia RAFAT GARCIA MD Dec 29, 2018 20:54
--- NOTE | 2018-12-29 21:00 | NUR ---
Pt has dementia, refused night time medications. Entering patient rooms, attempting to leave unit, setting off fire alarms, noncompliant with treatment regimens. Called Dr. Belle and Dr. Mallory about situation, Dr. Mallory agreed patient could be discharged tonight and put in discharge orders. Called daughter: Lorraine and she is on her way to pick patient. Nurse caddy/caddie supervisor called Dr. Mallory's office to schedule F/U appointment and left contact information for patient's family on voicemail. Nurse caddy/caddie supervisor calling new prescriptions into [facility] pharmacy at [place] tomorrow am when they open. DOMINICK Peters
[2018-12-30] MEDS ORDERED: CLOPIDOGREL 75 MG (PLAVIX) TABLET PO SCH (09:00)
== END 2018-12-29 21:53 ==
LOC: ER FS 15:46 → CATH 16:55 → ICU 17:45 → CATH 17:50 → ICU 17:50 → CATH 12-29 21:53
PROVIDERS: ATTEND Internal Medicine Cardiovascular Disease
DX: I20.0 Unstable angina (principal); I10 Essential (primary) hypertension; I21.3 ST elevation (STEMI) myocardial infarction of unspecified site; I25.10 Atherosclerotic heart disease of native coronary artery without angina pectoris; E78.5 Hyperlipidemia, unspecified; Z79.82 Long term (current) use of aspirin; Z79.899 Other long term (current) drug therapy; Z87.891 Personal history of nicotine dependence
CPT/HCPCS: 36221; 36415; 71045; 80053; 80061; 83036; 83735; 83874; 84484; 85025; 85027; 85610; 85730; 87081; 93005; 93041; 93306; 93458; 96374

== ENCOUNTER 2019-03-29 13:53 | Emergency (ER) | payer MEDICARE, MEDICAID ==
[~2019-03-29] VITALS: Ht 182.9 cm; Wt 93.2 kg
[~2019-03-29 13:53] MED LIST: ASPI-983 PO; ATOR80TA76 PO; CLOP75TA28 PO; METO-333 PO; PANT40TA3 PO
[2019-03-29] MEDS ORDERED: OXYMETAZOLINE (AFRIN) 0.05% NA 15 ML BTL ONE (14:00)
[2019-03-29] MEDS ORDERED: TRANEXAMIC ACID 100 MG/ML 10 ML INJECTION IV ONE ×2 (14:10→14:30)
[2019-03-29] MEDS ORDERED: OXYMETAZOLINE (AFRIN) 0.05% NA 15 ML BTL SCH (14:15)
--- NOTE | 2019-03-29 14:36 | ED EENT ---
History of Present Illness General Chief Complaint: Nasal Problems Stated Complaint: NOSE BLEED Source: patient, family Exam Limitations: no limitations History of Present Illness Date Seen by Provider: Mar 29, 2019 Time Seen by Provider: 14:10 Initial Comments 64-year-old male presents with nosebleed that started approximately 30 minutes prior to arrival. He reports that he blew his nose really hard numbness or bleeding. The bleeding is quite a bit worse for the right than the left Meraz. Patient is on Plavix. He does report he is having a recent head cold. No trauma, chest pain, dizziness, shortness of breath. Timing/Duration: abrupt Severity: moderate Allergies and Home Medications Allergies Coded Allergies: No Known Drug Allergies (Unverified , 12/28/18) Home Medications Aspirin 81 Mg Tablet., 81 MG PO DAILY Prescribed by: RAFAT GARCIA on 12/29/182048 Atorvastatin Calcium 80 Mg Tablet, 80 MG PO HS Prescribed by: RAFAT GARCIA on 12/29/182048 Clopidogrel Bisulfate 75 Mg Tablet, 75 MG PO DAILY Prescribed by: RAFAT GARCIA on 12/29/182048 Metoprolol Tartrate 25 Mg Tablet, 25 MG PO BID Prescribed by: RAFAT GARCIA on 12/29/182048 Pantoprazole Sodium 40 Mg Tablet., 40 MG PO DAILY Prescribed by: RAFAT GARCIA on 12/29/182048 Patient Home Medication List Home Medication List Reviewed: Yes Review of Systems Review of Systems Constitutional: No chills, No fever Nose: see HPI, epistaxis Mouth: no symptoms reported Throat: no symptoms reported Respiratory: no symptoms reported Cardiovascular: no symptoms reported Gastrointestinal: no symptoms reported Past Frgwwlo-Kjogyc-Tfunqq Hx Past Med/Social Hx: Reviewed Nursing Past Med/Soc Hx Patient Social History Type Used: Smokeless Tobacco 2nd Hand Smoke Exposure: No Recent Hopitalizations: No Seasonal Allergies Seasonal Allergies: No Past Medical History Surgeries: No Coronary Stent Respiratory: No Cardiac: Yes Hypertension Neurological: Yes (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 4.0oz. 85.705510yd; 25.8 BMI Method:Estimated General Appearance: WD/WN, no apparent distress Nose: active bleeding (moderate) Neck: full range of motion, supple Cardiovascular: normal peripheral pulses, regular rate, rhythm Respiratory: chest non-tender, lungs clear, normal breath sounds Neurologic/Psychiatric: alert, normal mood/affect, oriented x 3 Skin: normal color, warm/dry Procedures/Interventions Nasal : Nasal Location: Right Nasal Drops Instilled: Afrin Nasal Procedures: Rapid Rhino Progress Patient was initially given Afrin with minimal relief. Then had a round of 1.5 mL TXaa using an atomizer in each nare, then a 3 ml txa in right nare, mild relief. pt then had a txa soaked rapid rhino placed in right nare, with bleeding controlled Progress/Results/Core Measures Results/Orders My Orders Orders - RAMO POLLACK DO Oxymetazoline 0.05% Nasal Damon (Afrin 0. (03/29/19 14:00) Oxymetazoline 0.05% Nasal Damon (Afrin 0. (03/29/19 14:15) Tranexamic Acid Injection (Cyklokapron I (03/29/19 14:10) Tranexamic Acid Injection (Cyklokapron I (03/29/19 14:30) Medications Given in ED Current Medications Medications Dose Ordered Sig/Brandyn Route Start Time Stop Time Status Last Admin Dose Admin Tranexamic Acid 600 mg ONCE ONCE IV 03/29/19 14:30 03/29/19 14:31 DC 03/29/19 14:21 600 MG Vital Signs/I&O 03/29/19 13:57 Temp 35.7 Pulse 68 Resp 18 B/P (MAP) 168/104 (125) Pulse Ox 98 O2 Delivery Room Air Departure Impression Primary Impression: Epistaxis Disposition: 01 HOME, SELF-CARE Condition: Stable Departure-Patient Inst. Referrals: [facility] (PCP) Primary Care Physician SPEEDY REYNOLDS APRN (Family) Primary Care Physician Patient Instructions: Nosebleeds (DC), [facility] NASAL IRR[facility]. Add. Discharge Instructions: Follow-up with ENT or primary care provider in 2 days for removal of Rhino Rocket and recheck of symptoms All discharge instructions reviewed with patient and/or family. Voiced understanding. RAMO POLLACK DO Mar 29, 2019 14:36 POS
[2019-03-29 15:10] VITALS: BP 156/96
--- OUTSIDE RECORDS SUMMARY | 2019-04-23 23:23 | XMS REPORT | Continuity of Care Document ---
Author Organization Unknown Address Unknown Phone Unavailable Allergies Active Description Code Type Severity Reaction Onset Reported/Identified Relationship to Patient Clinical Status Yes No Known Drug Allergies [id number] Drug Allergy Unknown N/A 12/28/2018 Medications There is no data. Problems Date Dx Coded Attending Type Code Diagnosis Diagnosed By 12/29/2018 RAFAT GARCIA MD, Ot E78. 5 HYPERLIPIDEMIA, UNSPECIFIED 12/29/2018 RAFAT GARCIA MD Ot I10 ESSENTIAL (PRIMARY) HYPERTENSION 12/29/2018 RAFAT GARCIA MD Ot I20. 0 UNSTABLE ANGINA 12/29/2018 RAFAT GARCIA MD Ot I21. 3 ST ELEVATION (STEMI) MYOCARDIAL INFARCTI 12/29/2018 RAFAT GARCIA MD Ot I25. 10 ATHSCL HEART DISEASE OF [place] CORONARY 12/29/2018 RAFAT GARCIA MD Ot Z79. 82 FOREST ECONOMIST (CURRENT) USE OF ASPIRIN 12/29/2018 RAFAT GARCIA MD Ot Z79.899 OTHER ALF (CURRENT) DRUG THERAPY 12/29/2018 RAFAT GARCIA MD Ot Z87.891 PERSONAL HISTORY OF NICOTINE DEPENDENCE 01/02/2019 RAFAT GARCIA MD Ot E78. 5 HYPERLIPIDEMIA, UNSPECIFIED 01/02/2019 RAFAT GARCIA MD Ot I10 ESSENTIAL (PRIMARY) HYPERTENSION 01/02/2019 RAFAT GARCIA MD Ot I20. 0 UNSTABLE ANGINA 01/02/2019 RAFAT GARCIA MD Ot I21. 3 ST ELEVATION (STEMI) MYOCARDIAL INFARCTI 01/02/2019 RAFAT GARCIA MD Ot I25. 10 ATHSCL HEART DISEASE OF [place] CORONARY 01/02/2019 RAFAT GARCIA MD Ot Z79. 82 FOREST ECONOMIST (CURRENT) USE OF ASPIRIN 01/02/2019 RAFAT GARCIA MD Ot Z79.899 OTHER FOREST ECONOMIST (CURRENT) DRUG THERAPY 01/02/2019 RAFAT GARCIA MD Ot Z87.891 PERSONAL HISTORY OF NICOTINE DEPENDENCE 01/02/2019 RAFAT GARCIA MD Ot E78. 5 HYPERLIPIDEMIA, UNSPECIFIED 01/02/2019 RAFAT GARCIA MD Ot I10 ESSENTIAL (PRIMARY) HYPERTENSION 01/02/2019 RAFAT GARCIA MD Ot I20. 0 UNSTABLE ANGINA 01/02/2019 RAFAT GARCIA MD Ot I21. 3 ST ELEVATION (STEMI) MYOCARDIAL INFARCTI 01/02/2019 RAFAT GARCIA MD Ot I25. 10 ATHSCL HEART DISEASE OF [place] CORONARY 01/02/2019 RAFAT GARCIA MD Ot Z79. 82 ALF (CURRENT) USE OF ASPIRIN 01/02/2019 RAFAT GARCIA MD Ot Z79.899 OTHER FOREST ECONOMIST (CURRENT) DRUG THERAPY 01/02/2019 RAFAT GARCIA MD Ot Z87.891 PERSONAL HISTORY OF NICOTINE DEPENDENCE 01/04/2019 RAFAT GARCIA MD Ot E78. 5 HYPERLIPIDEMIA, UNSPECIFIED 01/04/2019 RAFAT GARCIA MD Ot I10 ESSENTIAL (PRIMARY) HYPERTENSION 01/04/2019 RAFAT GARCIA MD Ot I20. 0 UNSTABLE ANGINA 01/04/2019 RAFAT GARCIA MD Ot I21. 3 ST ELEVATION (STEMI) MYOCARDIAL INFARCTI 01/04/2019 RAFAT GARCIA MD Ot I25. 10 ATHSCL HEART DISEASE OF [place] CORONARY 01/04/2019 RAFAT GARCIA MD Ot Z79. 82 ALF (CURRENT) USE OF ASPIRIN 01/04/2019 RAFAT GARCIA MD Ot Z79.899 OTHER FOREST ECONOMIST (CURRENT) DRUG THERAPY 01/04/2019 RAFAT GARCIA MD Ot Z87.891 PERSONAL HISTORY OF NICOTINE DEPENDENCE 04/03/2019 POLLACK DO, RAMO L Ot I10 ESSENTIAL (PRIMARY) HYPERTENSION 04/03/2019 POLLACK DO, RAMO L Ot R04.0 EPISTAXIS 04/03/2019 POLLACK DO, RAMO L Ot Z79.0 2 FOREST ECONOMIST (CURRENT) USE OF ANTITHROMBOTI 04/03/2019 POLLACK DO, RAMO L Ot Z79.8 2 ALF (CURRENT) USE OF ASPIRIN 04/03/2019 POLLACK DO, RAMO L Ot Z80.4 9 FAMILY HISTORY OF MALIGNANT NEOPLASM OF 04/03/2019 POLLACK DO, RAMO L Ot Z82.4 9 FAMILY HX OF ISCHEM HEART DIS AND OTH DI 04/03/2019 POLLACK DO, RAMO L Ot Z95.5 PRESENCE OF CORONARY ANGIOPLASTY IMPLANT Procedures There is no data. Results Test Result Range Complete blood count (CBC) with automate d white blood cell (WBC) differential - 12/28/18 15:57 Blood leukocytes automated count (number/volume) 9.2 10*3/uL 4.3-11.0 Blood erythrocytes automated count (number/volume) 5.11 10*6/uL 4.35-5.85 Venous blood hemoglobin measurement (mass/volume) 15.0 g/dL 13.3-17.7 Blood hematocrit (volume fraction) 46 % 40-54 Automated erythrocyte mean corpuscular volume 90 [ foz_us] 80-99 Automated erythrocyte mean corpuscular h emoglobin (mass per erythrocyte) 29 pg 25-34 Automated erythrocyte mean corpuscular h emoglobin concentration measurement (mass/volume) 33 g/dL 32-36 Automated erythrocyte distribution width ratio 13. 5 % 10.0- 14.5 Automated blood platelet count (count/volume) 228 10*3/uL 130-400 Automated blood platelet mean volume measurement 10.4 [foz_us] 7.4-10.4 Automated blood neutrophils/100 leukocytes 75 % 42-75 Automated blood lymphocytes/100 leukocytes 18 % 12-44 Blood monocytes/100 leukocytes 6 % 0-12 Automated blood eosinophils/100 leukocytes 1 % 0-10 Automated blood basophils/100 leukocytes 1 % 0-10 Blood neutrophils automated count (number/volume) 6.9 10*3 1.8-7.8 Blood lymphocytes automated count (number/volume) 1.6 10*3 1.0-4.0 Blood monocytes automated count (number/volume) 0. 5 10*3 0.0-1.0 Automated eosinophil count 0.1 10*3/uL 0 .0-0.3 Automated blood basophil count (count/volume) 0.1 10*3/uL 0.0-0.1 Comprehensive metabolic panel - 12/28/18 15:57 Serum or plasma sodium measurement (moles/volume) 146 mmol/L 135-145 Serum or plasma potassium measurement (moles/volume) 4.1 mmol/L 3.6-5.0 Serum or plasma chloride measurement (moles/volume) 105 mmol/L 98-107 Carbon dioxide 29 mmol/L 21-32 Serum or plasma anion gap determination (moles/volume) 12 mmol/L 5-14 Serum or plasma urea nitrogen measurement (mass/volume ) 8 mg/dL 7-18 Serum or plasma creatinine measurement (mass/volume) 1.41 mg/dL 0.60-1.30 Serum or plasma urea nitrogen/creatinine mass ratio 6 NRG Serum or plasma creatinine measurement w ith calculation of estimated glomerular filtration rate > NRG Serum or plasma glucose measurement (mass/volume) 130 mg/dL 70-105 Serum or plasma calcium measurement (mass/volume) 10.3 mg/dL 8.5-10.1 Serum or plasma total bilirubin measurement (mass/volu me) 0.4 mg/dL 0.1-1.0 Serum or plasma alkaline phosphatase jade surement (enzymatic activity/volume) 107 U/L 40-136 Serum or plasma aspartate aminotransfera se measurement (enzymatic activity/volume) 21 U/L 5-34 Serum or plasma alanine aminotransferase measurement (enzymatic activity/volume) 12 U/L 0-55 Serum or plasma protein measurement (mass/volume) 8.4 g/dL 6.4-8.2 Serum or plasma albumin measurement (mass/volume) 4.7 g/dL 3.2-4.5 Magnesium - 12/28/18 15:57 Magnesium 2.2 mg/dL 1.6-2.4 Myoglobin, serum - 12/28/18 15:57 Myoglobin, serum 45.7 ng/mL 10.0-92.0 Serum or plasma troponin i.cardiac measu rement (mass/volume) - 12/28/18 15:57 Serum or plasma troponin i.cardiac measurement (mass/v olume) < ng/mL <0.30 PT panel in platelet poor plasma by coag ulation assay - 12/28/18 15:57 Prothrombin time (PT) in platelet poor plasma by coagu lation assay 13.1 s 12.2-14.7 INR in platelet poor plasma or blood by coagulation as say 1.0 0.8-1.4 Activated partial thromboplastin time (a PTT) in platelet poor plasma bycoagulation assay - 12/28/18 15:57 Activated partial thromboplastin time (a PTT) in platelet poor plasma bycoagulation assay 31 s 24-35 Methicillin resistant Staphylococcus aur eus (MRSA) screening culture - 12/28/18 18:10 Methicillin resistant Staphylococcus aureus (MRSA) scr eening culture NEG NRG Automated blood complete blood count (he mogram) panel - 12/29/18 03:48 Blood leukocytes automated count (number/volume) 10.0 10*3/uL 4.3-11.0 Blood erythrocytes automated count (number/volume) 4.51 10*6/uL 4.35-5.85 Venous blood hemoglobin measurement (mass/volume) 13.3 g/dL 13.3-17.7 Blood hematocrit (volume fraction) 40 % 40-54 Automated erythrocyte mean corpuscular volume 89 [ foz_us] 80-99 Automated erythrocyte mean corpuscular h emoglobin (mass per erythrocyte) 30 pg 25-34 Automated erythrocyte mean corpuscular h emoglobin concentration measurement (mass/volume) 33 g/dL 32-36 Automated erythrocyte distribution width ratio 13. 9 % 10.0- 14.5 Automated blood platelet count (count/volume) 197 10*3/uL 130-400 Automated blood platelet mean volume measurement 10.7 [foz_us] 7.4-10.4 Comprehensive metabolic panel - 12/29/18 03:48 Serum or plasma sodium measurement (moles/volume) 142 mmol/L 135-145 Serum or plasma potassium measurement (moles/volume) 3.9 mmol/L 3.6-5.0 Serum or plasma chloride measurement (moles/volume) 105 mmol/L 98-107 Carbon dioxide 26 mmol/L 21-32 Serum or plasma anion gap determination (moles/volume) 11 mmol/L 5-14 Serum or plasma urea nitrogen measurement (mass/volume ) 8 mg/dL 7-18 Serum or plasma creatinine measurement (mass/volume) 1.15 mg/dL 0.60-1.30 Serum or plasma urea nitrogen/creatinine mass ratio 7 NRG Serum or plasma creatinine measurement w ith calculation of estimated glomerular filtration rate > NRG Serum or plasma glucose measurement (mass/volume) 147 mg/dL 70-105 Serum or plasma calcium measurement (mass/volume) 9.6 mg/dL 8.5-10.1 Serum or plasma total bilirubin measurement (mass/volu me) 0.4 mg/dL 0.1-1.0 Serum or plasma alkaline phosphatase jade surement (enzymatic activity/volume) 75 U/L 40-136 Serum or plasma aspartate aminotransfera se measurement (enzymatic activity/volume) 28 U/L 5-34 Serum or plasma alanine aminotransferase measurement (enzymatic activity/volume) 11 U/L 0-55 Serum or plasma protein measurement (mass/volume) 6.7 g/dL 6.4-8.2 Serum or plasma albumin measurement (mass/volume) 3.7 g/dL 3.2-4.5 CALCIUM CORRECTED 9.8 mg/dL 8.5-10.1 Serum or plasma troponin i.cardiac measu rement (mass/volume) - 12/29/18 03:48 Serum or plasma troponin i.cardiac measurement (mass/v olume) 1.131 ng/mL <0.028 Lipid 1996 panel - 12/29/18 03:48 Serum or plasma triglyceride measurement (mass/volume) 87 mg/dL <150 Serum or plasma cholesterol measurement (mass/volume) 172 mg/dL < 200 Serum or plasma cholesterol in HDL measurement (mass/v olume) 42 mg/dL 40-60 Cholesterol in LDL [mass/volume] in serum or plasma by direct assay 124 mg/dL 1-129 Serum or plasma cholesterol in VLDL measurement (mass/ volume) 17 mg/dL 5-40 Hemoglobin A1c measurement - 12/29/18 03 :48 Blood hemoglobin A1C measurement (mass/volume) 6.0 % 4.0-5.6 MEAN BLOOD GLUCOSE 126 % <=126 Encounters ACCT No. Visit Date/Time Discharge Status Pt. Type Provider Facility Loc./Unit Complaint [id number] 03/31/2019 14:40:00 03/31/2019 23:59: 59 CLS Outpatient SPEEDY REYNOLDS [facility] [id number] 03/29/2019 13:54:00 15:10:00 DIS Outpatient RAMO POLLACK DO [facility] ER FS NOSE BLEED [id number] 12/28/2018 17:50:00 21:53:00 DIS Outpatient RAFAT GARCIA MD [facility] CATH CHEST PAIN
== END 2019-03-29 15:10 | disposition home or self-care (01) ==
LOC: EDUNIT# 13:53 → ER FS 13:54
DX: R04.0 Epistaxis (principal); I10 Essential (primary) hypertension; Z79.82 Long term (current) use of aspirin; Z79.02 Long term (current) use of antithrombotics/antiplatelets; Z95.5 Presence of coronary angioplasty implant and graft; Z82.49 Family history of ischemic heart disease and other diseases of the circulatory system; Z80.49 Family history of malignant neoplasm of other genital organs

== ENCOUNTER 2022-02-16 12:17 | Emergency (ER) | payer MEDICARE, MEDICAID ==
[~2022-02-16] VITALS: Ht 187.9 cm; Wt 83.9 kg
[~2022-02-16 12:17] MED LIST changes: +ASPI-1238 PO; -ASPI-983 PO; -PANT40TA3 PO; +PANT40TA52 PO
[2022-02-16] MEDS ORDERED: NS IV 1000 ML 1,000 ML ONE (12:35)
--- NOTE | 2022-02-16 12:42 | ED Fall/Injury ---
General Chief Complaint: Trauma-Non Activation Stated Complaint: FALL/ACUTE MENTAL STATUS CHANGE Source: patient, EMS, jail records Exam Limitations: no limitations History of Present Illness Date Seen by Provider: Feb 16, 2022 Time Seen by Provider: 12:19 Initial Comments 67-year-old male with past medical history of dementia, hypertension, hyperlipidemia [facility] due to mental status change. He apparently has been more confused for the past couple days, had a fall earlier today, and now even more confused. Reportedly had some left hip pain, but denies any other acute complaints including any chest pain, shortness of breath, abdominal pain, nausea, vomiting, diarrhea, focal weakness or numbness, or any other concerns. Patient has baseline dementia and he is unable to really answer questions for us appropriately. Allergies and Home Medications Allergies Coded Allergies: No Known Drug Allergies (Unverified , 12/28/18) Patient Home Medication List Home Medication List Reviewed: Yes Aspirin (Aspirin EC) 81 Mg Tablet., 81 MG PO DAILY Prescribed by: RAFAT GARCIA on 12/29/182048 Atorvastatin Calcium (Atorvastatin Calcium) 80 Mg Tablet, 80 MG PO HS Prescribed by: RAFAT GARCIA on 12/29/182048 Clopidogrel Bisulfate (Clopidogrel) 75 Mg Tablet, 75 MG PO DAILY Prescribed by: RAFAT GARCIA on 12/29/182048 Metoprolol Tartrate (Metoprolol Tartrate) 25 Mg Tablet, 25 MG PO BID Prescribed by: RAFAT GARCIA on 12/29/182048 Pantoprazole Sodium (Pantoprazole Sodium) 40 Mg Tablet.dr, 40 MG PO DAILY Prescribed by: RAFAT GARCIA on 12/29/182048 Review of Systems Review of Systems Constitutional: No fever Eyes: No Symptoms Reported Ears, Nose, Mouth, Throat: no symptoms reported Respiratory: no symptoms reported Cardiovascular: no symptoms reported Gastrointestinal: no symptoms reported Genitourinary: no symptoms reported Musculoskeletal: see HPI Skin: no symptoms reported Psychiatric/Neurological: See HPI All Other Systems Reviewed Negative Unless Noted: Yes Past Oqzhmxh-Iwwkky-Pujndt Hx Patient Social History Tobacco Use?: No Use of E-Cig and/or Vaping dev: Unable to obtain Substance use?: Unable to obtain Alcohol Use?: Unable to obtain Seasonal Allergies Seasonal Allergies: No Past Medical History Surgeries: Yes Coronary Stent Respiratory: No Cardiac: Yes (MD 2019) Coronary Artery Disease, Heart Attack, Hypertension Neurological: Yes (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 4.0oz. 85.605518hz; 27.00 BMI Method:Estimated General Appearance: WD/WN, no apparent distress HEENT: PERRL/EOMI, normal ENT inspection, pharynx normal Neck: non-tender, full range of motion, supple, normal inspection Cardiovascular: regular rate, rhythm, no edema, no murmur Respiratory: chest non-tender, lungs clear, normal breath sounds, no respiratory distress, no accessory muscle use Gastrointestinal: normal bowel sounds, non tender, soft; No distended, No guarding, No rebound Back: normal inspection, no CVA tenderness, no vertebral tenderness Extremities: normal range of motion, non-tender, normal inspection, no pedal edema, no calf tenderness, normal capillary refill Neurologic/Psychiatric: no motor/sensory deficits, alert, other (Disoriented to location and time, patient very strong in all extremities with no focal deficits, combative at times) Skin: normal color, warm/dry Lymphatic: no adenopathy Teena Coma Score Best Eye Response: (4) Open Spontaneously Best Verbal Response: (5) Oriented Best Motor Response: (6) Obeys Commands Progress/Results/Core Measures Results/Orders Lab Results Laboratory Tests Test 02/16/22 12:46 02/16/22 12:48 02/16/22 12:56 02/16/22 15:05 Range/Units White Blood Count 12.8 H 4.3-11.0 10^3/uL Red Blood Count 5.11 4.30-5.52 10^6/uL Hemoglobin 15.0 13.3-17.7 g/dL Hematocrit 47 40-54 % Mean Corpuscular Volume 92 80-99 fL Mean Corpuscular Hemoglobin 29 25-34 pg Mean Corpuscular Hemoglobin Concent 32 32-36 g/dL Red Cell Distribution Width 14.9 H 10.0-14.5 % Platelet Count 186 130-400 10^3/uL Mean Platelet Volume 11.7 9.0-12.2 fL Immature Granulocyte % (Auto) 1 % Neutrophils (%) (Auto) 84 H 42-75 % Lymphocytes (%) (Auto) 11 L 12-44 % Monocytes (%) (Auto) 4 0-12 % Eosinophils (%) (Auto) 0 0-10 % Basophils (%) (Auto) 0 0-10 % Neutrophils # (Auto) 10.7 H 1.8-7.8 10^3/uL Lymphocytes # (Auto) 1.4 1.0-4.0 10^3/uL Monocytes # (Auto) 0.5 0.0-1.0 10^3/uL Eosinophils # (Auto) 0.0 0.0-0.3 10^3/uL Basophils # (Auto) 0.0 0.0-0.1 10^3/uL Immature Granulocyte # (Auto) 0.1 0.0-0.1 10^3/uL Prothrombin Time 14.4 12.2-14.7 SEC INR Comment 1.1 0.8-1.4 Activated Partial Thromboplast Time 31 24-35 SEC Sodium Level 149 H 135-145 MMOL/L Potassium Level 6.8 #*H 3.6-5.0 MMOL/L Chloride Level 116 H 98-107 MMOL/L Carbon Dioxide Level 13 L 21-32 MMOL/L Anion Gap 20 H 5-14 MMOL/L Blood Urea Nitrogen 83 H 7-18 MG/DL Creatinine 9.11 H 0.60-1.30 MG/DL Estimat Glomerular Filtration Rate 6 BUN/Creatinine Ratio 9 Glucose Level 183 H 70-105 MG/DL Lactic Acid Level 5.97 *H 4.00 *H 0.50-2.00 MMOL/L Calcium Level 10.6 H 8.5-10.1 MG/DL Corrected Calcium 10.4 H 8.5-10.1 MG/DL Magnesium Level 1.7 1.6-2.4 MG/DL Total Bilirubin 0.5 0.1-1.0 MG/DL Aspartate Amino Transf (AST/SGOT) 13 5-34 U/L Alanine Aminotransferase (ALT/SGPT) 10 0-55 U/L Alkaline Phosphatase 126 40-136 U/L Troponin I 0.062 H <0.028 NG/ML B-Type Natriuretic Peptide < 10.0 <100.0 PG/ML Total Protein 8.6 H 6.4-8.2 GM/DL Albumin 4.2 3.2-4.5 GM/DL Lipase 99 H 8-78 U/L Urine Color YELLOW Urine Clarity CLEAR Urine pH 5.0 5-9 Urine Specific [place] >=1.030 1.016-1.022 Urine Protein 1+ H NEGATIVE Urine Glucose (UA) NEGATIVE NEGATIVE Urine Ketones NEGATIVE NEGATIVE Urine Nitrite NEGATIVE NEGATIVE Urine Bilirubin 1+ H NEGATIVE Urine Urobilinogen 0.2 < = 1.0 MG/DL Urine Leukocyte Esterase 1+ H NEGATIVE Urine RBC (Auto) TRACE-I H NEGATIVE Urine RBC RARE /HPF Urine WBC 5-10 H /HPF Urine Squamous Epithelial Cells 0-2 /HPF Urine Crystals NONE /LPF Urine Bacteria FEW H /HPF Urine Casts PRESENT /LPF Urine Hyaline Casts 2-5 H /LPF Urine Mucus NEGATIVE /LPF Urine Culture Indicated YES Influenza Type A (RT-PCR) Not Detected Not Detecte Influenza Type B (RT-PCR) Not Detected Not Detecte SARS-CoV-2 RNA (RT-PCR) Detected H Not Detecte My Orders Orders - JENIFER YEBOAH MD Cbc With Automated Diff (02/16/22 12:34) Comprehensive Metabolic Panel (02/16/22 12:34) Blood Culture (02/16/22 12:34) Urinalysis (02/16/22 12:34) Urine Culture (02/16/22 12:34) Protime With Inr (02/16/22 12:34) Partial Thromboplastin Time (02/16/22 12:34) Chest 1 View, Ap/Pa Only (02/16/22 12:34) Ed Iv/Invasive Line Start (02/16/22 12:34) Ed Iv/Invasive Line Start (02/16/22 12:34) Troponin I Jerel (02/16/22 12:34) Vital Signs Adult Sepsis Patie Q15M (02/16/22 12:34) O2 (02/16/22 12:34) Remove Rings In Anticipation O (02/16/22 12:34) Lactic Acid Analyzer (02/16/22 12:34) Influenza A And B By Pcr (02/16/22 12:34) Ns Iv 1000 Ml (Sodium Chloride 0.9%) (02/16/22 12:45) Cefepime Injection (Maxipime Injection) (02/16/22 12:45) Covid 19 Inhouse Test (02/16/22 12:34) Bnp Jerel (02/16/22 12:34) Lipase (02/16/22 12:34) Magnesium (02/16/22 12:34) Ct Head Wo (02/16/22 12:36) Pelvis 1 To 2 Views (02/16/22 12:36) Ns Iv 1000 Ml (Sodium Chloride 0.9%) (02/16/22 12:35) Catheter(Urinary) Insert & Ass 03,15 (02/16/22 12:40) Ekg Tracing (02/16/22 12:42) Ziprasidone Injection (Geodon Injection) (02/16/22 12:46) Water (Sterile) For Injection (Sterile W (02/16/22 12:47) Restraints: Behavioral/Violent .once (02/16/22 13:06) Behavioral Restraints Q15 M Ch Q15M (02/16/22 13:06) Behavioral Restraint Q2hr Chec Q2H (02/16/22 13:06) Renewal Ordered Needed (Q3h Ad Q3H (02/16/22 13:06) Ns Iv 1000 Ml (Sodium Chloride 0.9%) (02/16/22 13:16) Insulin (Regular) Human (Novolin R (Per (02/16/22 14:04) D50w (Emergency) Syringe (Dextrose 50% 5 (02/16/22 14:15) Ziprasidone Injection (Geodon Injection) (02/16/22 15:00) Water (Sterile) For Injection (Sterile W (02/16/22 15:00) Lactated Ringers (Lr 1000 Ml Iv Solution (02/16/22 15:13) Restraints: Behavioral/Violent .once (02/16/22 15:45) Behavioral Restraints Q15 M Ch Q15M (02/16/22 16:10) Behavioral Restraint Q2hr Chec Q2H (02/16/22 16:10) Renewal Ordered Needed (Q3h Ad Q3H (02/16/22 16:10) Medications Given in ED Current Medications Medications Dose Ordered Sig/Brandyn Route Start Time Stop Time Status Last Admin Dose Admin Cefepime HCl 1000 mg/Sodium Chloride 50 ml @ 100 mls/hr ONCE ONCE IV 02/16/22 12:45 02/16/22 13:14 DC 02/16/22 13:29 100 MLS/HR Dextrose 25 ml ONCE ONCE IV 02/16/22 14:15 02/16/22 14:16 DC 02/16/22 14:47 25 ML Sterile Water 10 ml @ ud STK-MED ONCE .ROUTE 02/16/22 12:47 02/16/22 12:49 DC 02/16/22 12:50 1 MLS/HR Ziprasidone 10 mg ONCE ONCE IM 02/16/22 15:00 02/16/22 15:01 DC 02/16/22 15:10 10 MG Ziprasidone 20 mg STK-MED ONCE IM 02/16/22 12:46 02/16/22 12:49 DC 02/16/22 12:54 10 MG Vital Signs/I&O 02/16/22 02/16/22 02/16/22 02/16/22 12:20 12:30 12:49 13:04 Temp 35.9 Pulse 96 Resp 17 16 14 B/P (MAP) 74/48 (57) Pulse Ox 99 99 O2 Delivery Nasal Cannula Nasal Cannula O2 Flow Rate 2.00 2.00 02/16/22 02/16/22 02/16/22 02/16/22 13:10 13:20 13:35 13:50 Resp 16 16 14 14 02/16/22 02/16/22 02/16/22 02/16/22 14:05 14:20 14:35 14:50 Resp 14 14 16 14 02/16/22 02/16/22 02/16/22 02/16/22 15:05 15:20 15:35 15:40 Resp 14 16 16 15 02/16/22 02/16/22 15:55 16:10 Resp 17 14 Progress Progress Note : Progress Note 67-year-old male with above history coming in due to altered mental status. Patient was hypotensive on arrival. An IV was placed with much difficulty given the patient was combative. He required 10 mg of IM Geodon to keep a safe while we were trying to care for him. He was given a bolus of IV fluids and his blood pressure did come up some with a MAP of around 65. Basic labs were obtained and were significant for creatinine greater than 9 with previous around 1. Lactate greater than 5, potassium 6.8. Patient clearly in renal failure. He was given another bolus of IV fluids since we placed a Rhodes, and 30 cc of urine only came out with none more. He was given cefepime on arrival given his hypotension and confusion with concern for potential sepsis. COVID test came back positive, later we found out he was positive for COVID on January 27, so it is possible his PCR still going as positive. 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 Of note, the patient was given insulin and glucose for his elevated potassium. His EKG did not show any signs of hyperkalemia such as no T wave changes and no QRS widening. Initial ECG Impression Date: Feb 16, 2022 Initial ECG Impression Time: 13:01 Initial ECG Rate: 90 Initial ECG Rhythm: Normal Sinus Comment Narrow QRS, normal axis, no significant ST changes or T wave abnormalities Diagnostic Imaging Diagonstic Imaging: Xray (chest and pelvis), CT (head) Comments [facility], [place] NAME: DIMA MTZ [facility] REC#: [id number] PT STATUS: REG ER : 1955 PHYSICIAN: JENIFER YEBOAH MD ADMIT DATE: 02/16/22/ER Signed Date of Exam:02/16/22 CHEST 1 VIEW, AP/PA ONLY EXAMINATION: Chest, one view. HISTORY: AMS, hypotensive. COMPARISON: 12/28/2018. FINDINGS: Heart size and pulmonary vasculature are normal. The lungs are clear without consolidation, pleural effusion, or pneumothorax. The osseous structures are intact. IMPRESSION: 1. No acute radiographic abnormality in the chest. Dictated by: Dictated on workstation # [id number] Dict: 02/16/22 1545 Trans: 02/16/22 1551 [id number] Interpreted by: ARLENE GERONIMO DO Electronically signed by: ARLENE GERONIMO DO 02/16/22 1551 [facility], [place] NAME: DIMA MTZ [facility] REC#: [id number] PT STATUS: REG ER : 1955 PHYSICIAN: JENIFER YEBOAH MD ADMIT DATE: 02/16/22/ER Draft Date of Exam:02/16/22 PELVIS 1 TO 2 VIEWS INDICATION: Fall, with pelvic pain. AP pelvis obtained at 3:26 p.m. FINDINGS: No fracture or acute bony abnormality is seen. Patient is somewhat rotated. Joint spaces appear unremarkable. IMPRESSION: No acute abnormality in the bony pelvis. Dictated on workstation # [id number] Dict: 02/16/22 1547 Trans: 02/16/22 1549 [id number] Interpreted by: SARI HEDRICK MD Electronically signed by: [facility] [place] NAME: DIMA MTZ [facility] REC#: [id number] PT STATUS: REG ER : 1955 PHYSICIAN: JENIFER YEBOAH MD ADMIT DATE: 02/16/22/ER Draft Date of Exam:02/16/22 CT HEAD WO PROCEDURE: CT head without contrast. TECHNIQUE: Multiple contiguous axial images were obtained through the brain without the use of intravenous contrast. Auto Exposure Controls were utilized during the CT exam to meet ALARA standards for radiation dose reduction. INDICATION: Fall with altered mental status. COMPARISON: No prior There is no intracranial hemorrhage, hydrocephalus, cerebral edema, mass, mass effect nor evidence for elevated intracerebral pressures. There is no calvarial fracture deformity. There is no pneumocephalus, no hemo-sinus. No focal or generalized cerebral edema. There is a mild degree of generalized cortical atrophy without yajaira hydrocephalus. IMPRESSION: No hemorrhage, edema, fracture or other acute abnormalities. Dictated on workstation # [id number] Dict: 02/16/22 1535 Trans: 02/16/22 153 [facility] [id number] Interpreted by: ALLEGRA MERIDA Electronically signed by: Focused Exam Lactate Level 02/16/22 12:46: Lactic Acid Level 5.97*H 02/16/22 15:05: Lactic Acid Level 4.00*H Lactic Acid Level Laboratory Tests Test 02/16/22 12:46 02/16/22 15:05 Lactic Acid Level 5.97 MMOL/L (0.50-2.00) *H 4.00 MMOL/L (0.50-2.00) *H Departure Impression Primary Impression: ARF (acute renal failure) Qualified Codes: N17.9 - Acute kidney failure, unspecified Additional Impressions: AMS (altered mental status) Qualified Codes: R41.0 - Disorientation, unspecified Hyperkalemia COVID-19 Disposition: 02 XFER SHT-TRM HOSP Condition: Stable Admissions Decision to Admit/Date: Feb 16, 2022 Time/Decision to Admit Time: 14:00 Transfer Transfer Reason: Exceeds level of care Time Spoke to Accepting Phy: 14:10 Transfer Facility: [facility] Method of Transfer: EMS Departure-Patient Inst. Referrals: [facility] (PCP) Primary Care Physician SPEEDY REYNOLDS APRN (Family) Primary Care Physician JENIFER YEBOAH MD Feb 16, 2022 12:42
[2022-02-16] MEDS ORDERED: CEFEPIME INJECTION 1,000 MG in NS (IVPB) 50 ML IV ONE (12:45)
[2022-02-16] MEDS ORDERED: NS IV 1000 ML 1,000 ML IV SCH (12:45)
[2022-02-16] MEDS ORDERED: ZIPRASIDONE 20 MG INJ (GEODON) VIAL IM ONE ×2 (12:46→15:00)
[2022-02-16] MEDS ORDERED: WATER (STERILE) FOR INJECTION 10 ML ONE (12:47)
[2022-02-16 12:58] LABS: BASOPHILS % (AUTO) 0 % (0-10); EOSINOPHILS % (AUTO) 0 % (0-10); HEMATOCRIT 47 % (40-54); LYMPHOCYTES # (AUTO) 1.4 10^3/uL (1.0-4.0); LYMPHOCYTES % (AUTO) 11 % (12-44); MEAN CORPUSCULAR HEMOGLOBIN 29 pg (25-34); MEAN CORPUSCULAR HGB CONC 32 g/dL (32-36); MEAN CORPUSCULAR VOLUME 92 fL (80-99); MEAN PLATELET VOLUME 11.7 fL (9.0-12.2); MONOCYTES # (AUTO) 0.5 10^3/uL (0.0-1.0); MONOCYTES % (AUTO) 4 % (0-12); NEUTROPHILS # (AUTO) 10.7 10^3/uL (1.8-7.8); NEUTROPHILS % (AUTO) 84 % (42-75); PLATELET COUNT 186 10^3/uL (130-400); WHITE BLOOD COUNT 12.8 10^3/uL (4.3-11.0)
[2022-02-16 12:59] LABS: CLARITY,URINE CLEAR; COLOR,URINE YELLOW; GLUCOSE, URINE (UA) NEGATIVE (NEGATIVE); KETONES,URINE NEGATIVE (NEGATIVE); LEUKOCYTE ESTERASE ,URINE 1+ (NEGATIVE); NITRITE,URINE NEGATIVE (NEGATIVE); PROTEIN,URINE 1+ (NEGATIVE)
[2022-02-16 13:10] LABS: ALBUMIN 4.2 GM/DL (3.2-4.5); INR 1.1 (0.8-1.4); PROTHROMBIN TIME PATIENT 14.4 SEC (12.2-14.7)
[2022-02-16 13:11] LABS: CALCIUM 10.6 MG/DL (8.5-10.1)
[2022-02-16 13:13] LABS: TOTAL PROTEIN 8.6 GM/DL (6.4-8.2)
[2022-02-16 13:14] LABS: BILIRUBIN,URINE 1+ (NEGATIVE); RBC,URINE RARE /HPF
[2022-02-16 13:14] LABS: BILIRUBIN,TOTAL 0.5 MG/DL (0.1-1.0)
[2022-02-16 13:15] LABS: BACTERIA,URINE FEW /HPF; SQUAMOUS EPITHELIAL CELL,UR 0-2 /HPF
[2022-02-16 13:16] LABS: CREATININE SERUM 9.11 MG/DL (0.60-1.30)
[2022-02-16] MEDS ORDERED: NS IV 1000 ML 1,000 ML IV STA (13:16)
[2022-02-16 13:19] LABS: MAGNESIUM 1.7 MG/DL (1.6-2.4)
[2022-02-16 14:01] LABS: POTASSIUM 6.8 MMOL/L (3.6-5.0)
[2022-02-16] MEDS ORDERED: inSUlin (REGULAR) HUMAN 1 UNIT/0.01 ML (CHARGE PER UNIT) IV STA (14:04)
[2022-02-16] MEDS ORDERED: DEXTROSE 50% 50 ML (IMS) SYR IV ONE (14:15)
[2022-02-16] MEDS ORDERED: WATER (STERILE) FOR INJ 10 ML BTL INJ SCH (15:00)
[2022-02-16] MEDS ORDERED: LACTATED RINGERS 1,000 ML IV STA (15:13)
--- NOTE | 2022-02-16 15:39 | Diagnostic Imaging Report ---
PROCEDURE: CT head without contrast. TECHNIQUE: Multiple contiguous axial images were obtained through the brain without the use of intravenous contrast. Auto Exposure Controls were utilized during the CT exam to meet ALARA standards for radiation dose reduction. INDICATION: Fall with altered mental status. COMPARISON: No prior There is no intracranial hemorrhage, hydrocephalus, cerebral edema, mass, mass effect nor evidence for elevated intracerebral pressures. There is no calvarial fracture deformity. There is no pneumocephalus, no hemo-sinus. No focal or generalized cerebral edema. There is a mild degree of generalized cortical atrophy without yajaira hydrocephalus. IMPRESSION: No hemorrhage, edema, fracture or other acute abnormalities. Dictated by: Dictated on workstation # [id number]
--- NOTE | 2022-02-16 15:46 | Diagnostic Imaging Report ---
EXAMINATION: Chest, one view. HISTORY: AMS, hypotensive. COMPARISON: 12/28/2018. FINDINGS: Heart size and pulmonary vasculature are normal. The lungs are clear without consolidation, pleural effusion, or pneumothorax. The osseous structures are intact. IMPRESSION: 1. No acute radiographic abnormality in the chest. Dictated by: Dictated on workstation # [id number]
--- NOTE | 2022-02-16 15:49 | Diagnostic Imaging Report ---
INDICATION: Fall, with pelvic pain. AP pelvis obtained at 3:26 p.m. FINDINGS: No fracture or acute bony abnormality is seen. Patient is somewhat rotated. Joint spaces appear unremarkable. IMPRESSION: No acute abnormality in the bony pelvis. Dictated by: Dictated on workstation # [id number]
[2022-02-16 17:08] VITALS: BP 101/72
== END 2022-02-16 17:08 | disposition short-term general hospital (02) ==
LOC: EDUNIT# 12:17 → ER 12:19
DX: U07.1 COVID-19 (principal); E87.5 Hyperkalemia; N17.9 Acute kidney failure, unspecified; R41.82 Altered mental status, unspecified
CPT/HCPCS: 36415; 51702; 70450; 71045; 72170; 80053; 81000; 83605; 83690; 83735; 83880; 84484; 85025; 85610; 85730; 87040; 87088; 87636; 93005

== ENCOUNTER → 2022-04-14 | Outpatient (CLI) | payer MEDICARE, MEDICAID ==
[2022-04-14 14:04] LABS: BILIRUBIN,URINE NEGATIVE (NEGATIVE); CLARITY,URINE CLEAR; COLOR,URINE YELLOW; GLUCOSE, URINE (UA) NEGATIVE (NEGATIVE); KETONES,URINE NEGATIVE (NEGATIVE); LEUKOCYTE ESTERASE ,URINE NEGATIVE (NEGATIVE); NITRITE,URINE NEGATIVE (NEGATIVE); PH,URINE 6.5 (5-9); PROTEIN,URINE NEGATIVE (NEGATIVE)
[2022-04-14 14:17] LABS: BACTERIA,URINE TRACE /HPF; HYALINE CASTS, URINE 0-2 /LPF; RBC,URINE 0-2 /HPF; SQUAMOUS EPITHELIAL CELL,UR RARE /HPF
== END ==
PROVIDERS: ATTEND Family Medicine
DX: N39.0 Urinary tract infection, site not specified (principal)
CPT/HCPCS: 81000; 87088

== ENCOUNTER 2022-04-30 16:30 | Emergency (ER) | payer MEDICARE, MEDICAID ==
[~2022-04-30] VITALS: Ht 187.9 cm; Wt 83.9 kg
[2022-04-30] MEDS ORDERED: NS IV 1000 ML 1,000 ML IV STA ×3 (17:00→18:45)
[2022-04-30] MEDS ORDERED: NS IV 1000 ML 1,000 ML ONE (17:01)
[2022-04-30 17:07] LABS: BASOPHILS # (AUTO) 0.1 10^3/uL (0.0-0.1); BASOPHILS % (AUTO) 0 % (0-10); EOSINOPHILS # (AUTO) 0.2 10^3/uL (0.0-0.3); EOSINOPHILS % (AUTO) 1 % (0-10); HEMATOCRIT 37 % (40-54); HEMOGLOBIN 12.7 g/dL (13.3-17.7); LYMPHOCYTES # (AUTO) 0.8 10^3/uL (1.0-4.0); LYMPHOCYTES % (AUTO) 3 % (12-44); MEAN CORPUSCULAR HEMOGLOBIN 30 pg (25-34); MEAN CORPUSCULAR HGB CONC 34 g/dL (32-36); MEAN CORPUSCULAR VOLUME 87 fL (80-99); MEAN PLATELET VOLUME 11.6 fL (9.0-12.2); MONOCYTES # (AUTO) 1.1 10^3/uL (0.0-1.0); MONOCYTES % (AUTO) 4 % (0-12); NEUTROPHILS % (AUTO) 78 % (42-75); PLATELET COUNT 117 10^3/uL (130-400); WHITE BLOOD COUNT 24.3 10^3/uL (4.3-11.0)
--- NOTE | 2022-04-30 17:15 | ED General ---
General Chief Complaint: General Problems/Pain Stated Complaint: DEHYDRATION Source of Information: EMS, [facility] Records, Old Records Exam Limitations: Other (Decreased mental status and history of brain injury) History of Present Illness Date Seen by Provider: Apr 30, 2022 Time Seen by Provider: 16:30 Initial Comments 67-year-old male presenting from medical [place] with concern for dehydration. He was not wanting to eat or drink. 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 However he has not been wanting to eat or drink and there is been decreased urine output. He did have sepsis in January with acute renal failure and was transferred to [facility] in [place] at that time. He is a DNR patient. 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 Timing/Duration: 2-3 Days Severity: Moderate Associated Systoms: No Cough, No Fever/Chills, No Nausea/Vomiting; Weakness History obtained from [place] records, EMS staff and review of prior medical records from 02/16/2022 ED visit where he had to be transferred to [facility] for nephrology and cardiology. Allergies and Home Medications Allergies Coded Allergies: No Known Drug Allergies (Unverified , 12/28/18) Patient Home Medication List Home Medication List Reviewed: Yes Aspirin (Aspirin EC) 81 Mg Tablet., 81 MG PO DAILY Prescribed by: RAFAT GARCIA on 12/29/182048 Atorvastatin Calcium (Atorvastatin Calcium) 80 Mg Tablet, 80 MG PO HS Prescribed by: RAFAT GARCIA on 12/29/182048 Clopidogrel Bisulfate (Clopidogrel) 75 Mg Tablet, 75 MG PO DAILY Prescribed by: RAFAT GARCIA on 12/29/182048 Metoprolol Tartrate (Metoprolol Tartrate) 25 Mg Tablet, 25 MG PO BID Prescribed by: RAFAT GARCIA on 12/29/182048 Pantoprazole Sodium (Pantoprazole Sodium) 40 Mg Tablet., 40 MG PO DAILY Prescribed by: RAFAT GARCIA on 12/29/182048 Review of Systems Review of Systems Constitutional: No chills, No fever EENTM: no symptoms reported Respiratory: No cough Cardiovascular: No palpitations Gastrointestinal: loss of appetite Genitourinary: decreased output (arora catheter in place) Musculoskeletal: no symptoms reported Skin: No rash Psychiatric/Neurological: See HPI Past Pnxolvx-Josdbs-Zkndgj Hx Seasonal Allergies Seasonal Allergies: No Past Medical History Surgery/Hospitalization HX: Hypertension, Acute Kidney Injury, Indwelling Arora Catheter Surgeries: Yes Coronary Stent Respiratory: No Cardiac: Yes ([place] 2019) Coronary Artery Disease, Heart Attack, Hypertension Neurological: Yes (frontal lobe damage from severe hypertension, treated at [facility]) Reproductive Disorders: No Genitourinary: No Gastrointestinal: No Musculoskeletal: No Endocrine: No HEENT: No Cancer: No Psychosocial: No Integumentary: No Blood Disorders: No Family Medical History Cervical cancer Hypertension G8 BROTHER G8 BROTHER G8 BROTHER Stroke in brother Physical Exam Vital Signs Vital Signs - First Documented 04/30/22 16:32 Temp 35.5 Pulse 111 Resp 16 B/P (MAP) 89/56 (67) Pulse Ox 100 O2 Delivery Room Air Capillary Refill : Height, Weight, BMI Height: 6'0.00" Weight: 189lbs. 4.0oz. 85.489983hr; 23.00 BMI Method:Estimated General Appearance: Chronically ill HEENT: PERRL/EOMI; No Moist Mucous Membranes (dry mucous membranes) Neck: Non Tender, Supple Respiratory: Chest Non Tender, Lungs Clear, Normal Breath Sounds, No Accessory Muscle Use, No Respiratory Distress Cardiovascular: Regular Rate, Rhythm, Normal Peripheral Pulses Gastrointestinal: Normal Bowel Sounds, No Pulsatile Mass, Non Tender, Soft Rectal: Deferred Extremity: Normal Capillary Refill, Pedal Edema (1+ BLE) Neurologic/Psychiatric: Alert (he is awake and will open his eyes to voice and tapping his shoulder, he does not consistently answer questions) Skin: Normal Color, Warm/Dry Focused Exam Sepsis Stage: Sepsis Possible Source: Genitouriary Lactate Level 04/30/22 16:35: Lactic Acid Level 3.55*H 04/30/22 19:07: Lactic Acid Level 3.49*H Time of Focused Exam: 18:11 Respiratory: Chest Non Tender, Lungs Clear, Normal Breath Sounds, No Accessory Muscle Use, No Respiratory Distress Cardiovascular: Regular Rate, Rhythm, Normal Peripheral Pulses Capillary Refill: Less Than 3 Seconds Peripheral Pulses: 2+ Carotid (R), 2+ Carotid (L), 2+ Dorsalis Pedis (R), 2+ Left Dors-Pedis (L) Skin: normal color, warm/dry Lactic Acid Level Laboratory Tests Test 04/30/22 16:35 04/30/22 19:07 Lactic Acid Level 3.55 MMOL/L (0.50-2.00) *H 3.49 MMOL/L (0.50-2.00) *H Within 3hrs of presentation: Admin fluids, Admin ABX, Blood cultures prior to ABX's, Focus exam, Lactate level Progress/Results/Core Measures Suspected Sepsis SIRS Temperature: Pulse: Respiratory Rate: Laboratory Tests 04/30/22 16:35: White Blood Count 24.3H Blood Pressure / Mean: 04/30/22 16:35: Lactic Acid Level 3.55*H 04/30/22 19:07: Lactic Acid Level 3.49*H Laboratory Tests 04/30/22 16:35: Creatinine 6.24H, INR Comment 1.1, Platelet Count 117L, Total Bilirubin 1.0 Results/Orders Lab Results Laboratory Tests Test 04/30/22 16:35 04/30/22 17:05 04/30/22 17:46 04/30/22 19:07 Range/Units White Blood Count 24.3 H 4.3-11.0 10^3/uL Red Blood Count 4.26 L 4.30-5.52 10^6/uL Hemoglobin 12.7 L 13.3-17.7 g/dL Hematocrit 37 L 40-54 % Mean Corpuscular Volume 87 80-99 fL Mean Corpuscular Hemoglobin 30 25-34 pg Mean Corpuscular Hemoglobin Concent 34 32-36 g/dL Red Cell Distribution Width 15.9 H 10.0-14.5 % Platelet Count 117 L 130-400 10^3/uL Mean Platelet Volume 11.6 9.0-12.2 fL Immature Granulocyte % (Auto) 13 % Neutrophils (%) (Auto) 78 H 42-75 % Lymphocytes (%) (Auto) 3 L 12-44 % Monocytes (%) (Auto) 4 0-12 % Eosinophils (%) (Auto) 1 0-10 % Basophils (%) (Auto) 0 0-10 % Neutrophils # (Auto) 19.0 H 1.8-7.8 10^3/uL Lymphocytes # (Auto) 0.8 L 1.0-4.0 10^3/uL Monocytes # (Auto) 1.1 H 0.0-1.0 10^3/uL Eosinophils # (Auto) 0.2 0.0-0.3 10^3/uL Basophils # (Auto) 0.1 0.0-0.1 10^3/uL Immature Granulocyte # (Auto) 3.2 H 0.0-0.1 10^3/uL Neutrophils % (Manual) 90 % Lymphocytes % (Manual) 5 % Metamyelocytes % 1 % Myelocytes % 1 % Promyelocytes % 1 % Band Neutrophils 2 % Percent Immature Platelet Fraction 12.4 H 0.0-7.6 % Prothrombin Time 14.7 12.2-14.7 SEC INR Comment 1.1 0.8-1.4 Activated Partial Thromboplast Time 43 H 24-35 SEC Sodium Level 144 135-145 MMOL/L Potassium Level 4.7 3.6-5.0 MMOL/L Chloride Level 103 98-107 MMOL/L Carbon Dioxide Level 22 21-32 MMOL/L Anion Gap 19 H 5-14 MMOL/L Blood Urea Nitrogen 47 H 7-18 MG/DL Creatinine 6.24 H 0.60-1.30 MG/DL Estimat Glomerular Filtration Rate 9 BUN/Creatinine Ratio 8 Glucose Level 112 H 70-105 MG/DL Lactic Acid Level 3.55 *H 3.49 *H 0.50-2.00 MMOL/L Calcium Level 8.5 8.5-10.1 MG/DL Corrected Calcium 9.3 8.5-10.1 MG/DL Magnesium Level 1.1 *L 1.6-2.4 MG/DL Total Bilirubin 1.0 0.1-1.0 MG/DL Aspartate Amino Transf (AST/SGOT) 85 H 5-34 U/L Alanine Aminotransferase (ALT/SGPT) 28 0-55 U/L Alkaline Phosphatase 127 40-136 U/L Troponin I 1.13 *H <0.30 NG/ML Pro-B-Type Natriuretic Peptide 37146.0 H <125.0 PG/ML Total Protein 7.0 6.4-8.2 GM/DL Albumin 3.0 L 3.2-4.5 GM/DL Lipase 16 8-78 U/L Urine Color DARK YELLOW Urine Clarity CLOUDY Urine pH 5.5 5-9 Urine Specific Fisher >=1.030 1.016-1.022 Urine Protein 2+ H NEGATIVE Urine Glucose (UA) TRACE H NEGATIVE Urine Ketones 1+ H NEGATIVE Urine Nitrite POSITIVE H NEGATIVE Urine Bilirubin 2+ H NEGATIVE Urine Urobilinogen 1.0 < = 1.0 MG/DL Urine Leukocyte Esterase 2+ H NEGATIVE Urine RBC (Auto) 3+ H NEGATIVE Urine RBC /HPF Urine WBC TNTC H /HPF Urine Squamous Epithelial Cells NONE /HPF Urine Crystals NONE /LPF Urine Bacteria /HPF Urine Casts NONE /LPF Urine Mucus NEGATIVE /LPF Urine Culture Indicated YES Influenza Type A (RT-PCR) Not Detected Not Detecte Influenza Type B (RT-PCR) Not Detected Not Detecte SARS-CoV-2 RNA (RT-PCR) Not Detected Not Detecte My Orders Orders - KAVON DARDEN MD Ns Iv 1000 Ml (Sodium Chloride 0.9%) (04/30/22 17:01) Cbc With Automated Diff (04/30/22 17:00) Magnesium (04/30/22 17:00) Chest 1 View Ap/Pa Only (04/30/22 17:00) Ekg Tracing (04/30/22 17:00) Comprehensive Metabolic Panel (04/30/22 17:00) Protime With Inr (04/30/22 17:00) Partial Thromboplastin Time (04/30/22 17:00) O2 (04/30/22 17:00) Monitor-Rhythm Ecg Trace Only (04/30/22 17:00) Ed Iv/Invasive Line Start (04/30/22 17:00) Lipase (04/30/22 17:00) Troponin I Fs (04/30/22 17:00) Probnp Fs (04/30/22 17:00) Arora Cath (04/30/22 17:00) Ua Culture If Indicated (04/30/22 17:00) Blood Culture (04/30/22 17:00) Covid 19 Inhouse Test (04/30/22 17:00) Lactic Acid Analyzer (04/30/22 17:00) Influenza A And B By Pcr (04/30/22 17:00) Isolation Central Supply Req (04/30/22 17:00) Ns Iv 1000 Ml (Sodium Chloride 0.9%) (04/30/22 17:00) Ct Head Wo (04/30/22 17:03) Manual Differential (04/30/22 16:35) Code/Resuscitation (04/30/22 17:15) Urine Culture (04/30/22 17:05) Ceftriaxone 1 Gm Pre-Mix (Rocephin 1 Gm (04/30/22 17:36) Ns Iv 1000 Ml (Sodium Chloride 0.9%) (04/30/22 17:36) Aspirin Tablet (Aspirin Tablet) (04/30/22 18:17) Ns Iv 1000 Ml (Sodium Chloride 0.9%) (04/30/22 18:45) Vital Signs/I&O 04/30/22 16:32 Temp 35.5 Pulse 111 Resp 16 B/P (MAP) 89/56 (67) Pulse Ox 100 O2 Delivery Room Air Capillary Refill : Progress Note #1: Progress Note History had to be obtained primarily from independent discussion with EMS and long-term. Obtain urinalysis and change out Arora catheter since current catheter appeared old and was not draining. CT scan of the head to evaluate for possible acute stroke or mass or bleeding since patient has decreased responsiveness. Chest x-ray to look for signs of pneumonia or effusion or pulmonary vascular congestion. Check basic labs along with blood cultures and lactic acid looking for signs of anemia, elevated white count, sepsis, elec trolyte imbalance, renal failure, hepatic failure, myocardial infarction, heart failure. Give normal saline 1 L IV fluid bolus for hydration, Rocephin 1 g IV for antibiotic coverage for possible sepsis and UTI. Progress Note #2: Progress Note Labs shows elevated white blood cell count to 24.3 thousand with a left shift. As initial lactic acid was 3.55. He had acute kidney injury with elevated BUN and creatinine. His urine had nitrites and leukocyte Estrace along with white blood cells and signs of bacteria with infection. A new culture will be obtained. Blood cultures were pending. His troponin and proBNP were both elevated to indicate fluid overload and His chest x-ray did not show any acute infiltrate or effusion. He was rotated on the x-ray. CT of the head did not show any acute intracranial hemorrhage or mass or tumor or bleeding. He had some improvement in his heart rate and blood pressure with the IV fluids and antibiotic. With his elevated lactic acid and blood pressure at times under 100 systolic we will continue with IV fluids to help with hydration and treat for sepsis. With his acute kidney injury he would need admitted to the hospital that have nephrology. I did discuss his case with his Sabina over the phone. She was the second in line For [employer] but we did not have contact information for his Primary delegate for [employer], his daughter Lorraine. His stated that his kidney function improved back to normal when he was at [facility]. She was unaware of him having the Arora catheter in place. She confirmed that he is a DNR patient but stated that she would like him to go wherever is appropriate for him to get medical treatment for his condition. She was agreeable to going to [facility] since he had been there previously. She stated that she would also talk to her daughter and if she had further questions or concerns she would call the ED herself. Progress Note #3: Time: 18:11 Progress Note Call placed to [facility] transfer line. Discussed with DOMINICK Toledo. She took basic information on the patient and will contact the hospitalist to call back about transfer. 1835 d/w Dr. Allison Cardenas and she was advised of patient history and presenting complaints today as well as his labs showing sepsis with acute kidney injury and dehydration. He was responding to IV fluid hydration but did have a soft blood pressure at times. Continue with IV fluids in addition to the antibiotics for sepsis. Also counseled on his lab results showing elevated troponin and proBNP which could be partly from his renal failure and fluid overload. He was not showing any signs of pulmonary vascular congestion on his chest x-ray and was maintaining at 100% O2 sat on room air. He has a DNR but family still wanted him to receive treatment and see if he would improve. Dr. Cardenas agreed to accept him to the telemetry floor bed for his sepsis and dehydration with acute kidney injury. If his lactic acid was going up instead of improving on his repeat or if he had worsening in condition and she would like to be notified so appropriate bed placement could be confirmed. If he needed a higher level of care than the telemetry floor bed they would like to know ahead of time. 1923 repeat lactic Acid level was slightly improved from 3.55 down to 3.49. He had improved blood pressure with hydration. Will plan on transfer by helicopter air ambulance to [facility] due to his sepsis and having soft blood pressures at times. He would have extended delay in transfer time waiting on ground ambulance as the local ambulance was transporting another patient already to [place]. 1950 Still no bed assigment when checked with DOMINICK Toledo at [facility]. 2039 patient had bed assignment and will contact air ambulance service for transport. ECG Initial ECG Impression Date: Apr 30, 2022 Initial ECG Impression Time: 17:40 Initial ECG Rate: 96 Initial ECG Rhythm: Normal Sinus Initial ECG Comparisson: Unchanged (02/16/2022) Comment Based on my personal interpretation and review of his electrocardiogram he has sinus rhythm with a heart rate of 96 bpm. FL interval [address] elevation. QT interval 371 ms with a QTc interval 425 ms. Overall this appears similar to tracing from February 16, 2022. Diagnostic Imaging Diagonstic Imaging: Xray Plain Films/CT/US/NM/MRI: chest Comments [facility] [place] NAME: DIMA MTZ MED REC#: [id number] PT STATUS: REG ER : 1955 PHYSICIAN: KAVON DARDEN MD ADMIT DATE: 04/30/22/ER FS Signed Date of Exam:04/30/22 CHEST 1 VIEW AP/PA ONLY INDICATION: Decreased responsiveness, altered mental status, confusion. COMPARISON: 02/16/2022. TECHNIQUE: Single radiograph of the chest dated April 30, 2022. FINDINGS: Significant patient rotation is noted which slightly limits evaluation. The cardiac silhouette is within normal limits in size. No significant pulmonary vascular congestion. Chronic elevation of the right hemidiaphragm. The lungs are clear of focal pulmonary gas. No pleural effusion. No pneumothorax. No acute osseous abnormality. IMPRESSION: No acute cardiopulmonary abnormality when accounting for patient rotation. Dictated by: Dictated on workstation # [id number] Dict: 04/30/22 1746 Trans: 04/30/221823 [facility] [id number] Interpreted by: KAIT LANGE MD Electronically signed by: KAIT LANGE MD 04/30/221823 Reviewed: Reviewed by Me Diagonstic Imaging: CT Plain Films/CT/US/NM/MRI: head Comments [facility] [place] [place] NAME: DIMA MTZ MED REC#: [id number] PT STATUS: REG ER : 1955 PHYSICIAN: KAVON DARDEN MD ADMIT DATE: 04/30/22/ER FS Signed Date of Exam:04/30/22 CT HEAD WO PROCEDURE: CT head without contrast. TECHNIQUE: Multiple contiguous axial images were obtained through the brain without the use of intravenous contrast. Auto Exposure Controls were utilized during the CT exam to meet ALARA standards for radiation dose reduction. INDICATION: Decreased responsiveness, altered mental status, confusion. COMPARISON: 02/16/2022. FINDINGS: Age-appropriate volume loss. No intracranial hemorrhage. No intracranial mass, mass effect, midline shift, herniation, hydrocephalus or extra-axial fluid collection. Periventricular and subcortical white matter hypodensities are again identified, most consistent with moderate background chronic small vessel white matter ischemic disease. No CT evidence of an acute ischemic infarction. Mild background vascular calcifications. The orbits are unremarkable. Minimal mucosal thickening within the left frontal sinus and left ethmoidal air cells. No significant air-fluid level within the paranasal sinuses. The calvarium and extracalvarial soft tissues are unremarkable. IMPRESSION: No acute intracranial abnormality with age-appropriate volume loss and moderate background chronic small vessel white matter ischemic disease. Dictated by: Dictated on workstation # [id number] Dict: 04/30/22 1809 Trans: 04/30/22 183 [facility] [id number] Interpreted by: KAIT LANGE MD Electronically signed by: KAIT LANGE MD 04/30/221834 Reviewed: Reviewed by In Critical Care Note Critical Care Total Time (minutes) 75 minutes Progress 75 minutes of critical care time was spent with the patient. Time excludes separately billable procedures. History was obtained from reviewing prior ED visit from February 16 and discussion with EMS and long-term about obtaining independent history from them as patient was not consistently answering questions and had prior neuro deficit due to hypertension, ordering labs and interpreting results, ordering interventions and reviewing response, discussion with family and consultants, documentation in the chart. Patient was at risk of neurologic as well as cardiac and metabolic compromise and failure with his sepsis and acute kidney injury. He required my constant immediate availability to help manage his treatments and monitor his response as well as arranging for his transfer to a hospital for treatment Departure Impression Primary Impression: Sepsis Qualified Codes: A41.9 - Sepsis, unspecified organism; R65.20 - Severe sepsis without septic shock; N17.9 - Acute kidney failure, unspecified Additional Impressions: Cystitis without hematuria Acute kidney injury (nontraumatic) Dehydration Fluid overload Qualified Codes: E87.79 - Other fluid overload Non-STEMI (non-ST elevated myocardial infarction) Disposition: 02 XFER SHT-TRM HOSP Condition: Critical Transfer Transfer Reason: Exceeds level of care (Nephrology service and Cardiology) Time Spoke to Accepting Phy: 18:36 Transfer Progress Notes d/w Dr. Allison Cardenas for [place] Hospitalist. Reviewed with her the patient has findings of sepsis and dehydration with presentation of dry mouth and blocked catheter. When the catheter was changed she did have 150-200 mils of urine output. He was found to have an elevated white blood cell count and findings on his urinalysis for UTI. His lactic acid was elevated to 3.55 to go with sepsis. His blood pressures have been running around 100 210 systolic but he did have a couple where he dropped down to 90-95 systolic. He improved with hydration and CXR and CT head do not show acute findings. He has been given Rocephin for UTI. Order aspirin per rectum for his elevated proBNP and troponin, since he is not taking oral intake right now. His electrolytes otherwise are stable but has elevated BUN and Cr. Dr. Cardenas accepted him for tele floor bed but did want to see what his repeat lactic acid came back as for him. If he had increasing lactic acid or has worsening course they wanted to be notified as he might need ICU bed instead of floor tele bed. They will call once a bed is available for the patient. Transfer Facility: [facility] Method of Transfer: EMS Departure-Patient Inst. Referrals: SPEEDY REYNOLDS APRN (PCP) Primary Care Physician [facility] (Family) Primary Care Physician KAVON DARDEN MD Apr 30, 2022 17:15
[2022-04-30 17:17] LABS: GLUCOSE, URINE (UA) TRACE (NEGATIVE); KETONES,URINE 1+ (NEGATIVE); LEUKOCYTE ESTERASE ,URINE 2+ (NEGATIVE); NITRITE,URINE POSITIVE (NEGATIVE); PH,URINE 5.5 (5-9); PROTEIN,URINE 2+ (NEGATIVE)
[2022-04-30 17:20] LABS: BILIRUBIN,URINE 2+ (NEGATIVE); CLARITY,URINE CLOUDY; COLOR,URINE DARK YELLOW; WBC,URINE TNTC /HPF
[2022-04-30 17:24] LABS: INR 1.1 (0.8-1.4); PROTHROMBIN TIME PATIENT 14.7 SEC (12.2-14.7)
[2022-04-30 17:32] LABS: CALCIUM 8.5 MG/DL (8.5-10.1); CREATININE SERUM 6.24 MG/DL (0.60-1.30); POTASSIUM 4.7 MMOL/L (3.6-5.0)
[2022-04-30 17:33] LABS: MAGNESIUM 1.1 MG/DL (1.6-2.4)
[2022-04-30] MEDS ORDERED: cefTRIAXone 1 GM PRE-MIX 50 ML IV STA (17:36)
--- NOTE | 2022-04-30 18:02 | Diagnostic Imaging Report ---
INDICATION: Decreased responsiveness, altered mental status, confusion. COMPARISON: 02/16/2022. TECHNIQUE: Single radiograph of the chest dated April 30, 2022. FINDINGS: Significant patient rotation is noted which slightly limits evaluation. The cardiac silhouette is within normal limits in size. No significant pulmonary vascular congestion. Chronic elevation of the right hemidiaphragm. The lungs are clear of focal pulmonary gas. No pleural effusion. No pneumothorax. No acute osseous abnormality. IMPRESSION: No acute cardiopulmonary abnormality when accounting for patient rotation. Dictated by: Dictated on workstation # [id number]
[2022-04-30] MEDS ORDERED: ASPIRIN 325 MG (5 GR) TABLET PO STA (18:17)
--- NOTE | 2022-04-30 18:31 | Diagnostic Imaging Report ---
PROCEDURE: CT head without contrast. TECHNIQUE: Multiple contiguous axial images were obtained through the brain without the use of intravenous contrast. Auto Exposure Controls were utilized during the CT exam to meet ALARA standards for radiation dose reduction. INDICATION: Decreased responsiveness, altered mental status, confusion. COMPARISON: 02/16/2022. FINDINGS: Age-appropriate volume loss. No intracranial hemorrhage. No intracranial mass, mass effect, midline shift, herniation, hydrocephalus or extra-axial fluid collection. Periventricular and subcortical white matter hypodensities are again identified, most consistent with moderate background chronic small vessel white matter ischemic disease. No CT evidence of an acute ischemic infarction. Mild background vascular calcifications. The orbits are unremarkable. Minimal mucosal thickening within the left frontal sinus and left ethmoidal air cells. No significant air-fluid level within the paranasal sinuses. The calvarium and extracalvarial soft tissues are unremarkable. IMPRESSION: No acute intracranial abnormality with age-appropriate volume loss and moderate background chronic small vessel white matter ischemic disease. Dictated by: Dictated on workstation # [id number]
[2022-04-30 19:42] LABS: BAND NEUTROPHILS 2 %; LYMPHOCYTES % (MANUAL) 5 %; METAMYELOCYTES % 1 %; MYELOCYTES % 1 %; NEUTROPHILS % (MANUAL) 90 %; PROMYELOCYTES % 1 %
[2022-04-30 21:45] VITALS: BP 118/68
== END 2022-04-30 21:50 | disposition short-term general hospital (02) ==
LOC: EDUNIT# 16:30 → ER FS 16:30
DX: E86.0 Dehydration (principal); A41.9 Sepsis, unspecified organism; N30.90 Cystitis, unspecified without hematuria; N17.9 Acute kidney failure, unspecified; E87.70 Fluid overload, unspecified; I21.4 Non-ST elevation (NSTEMI) myocardial infarction; I10 Essential (primary) hypertension; Z20.822 Contact with and (suspected) exposure to COVID-19
CPT/HCPCS: 36415; 51702; 70450; 71045; 80053; 81000; 83605; 83690; 83735; 83880; 84484; 85007; 85027; 85610; 85730; 87040; 87077; 87088; 87186; 87636; 93005; 93041